=== PATIENT | female | born 1930 | race Caucasian/White ===

== ENCOUNTER 2016-07-19 11:54 | Observation (INO) ==
[2016-07-19] MEDS ORDERED: Aspirin 81 MG TAB.CHEW PO ONE (11:57)
--- NOTE | 2016-07-19 12:00 | Emergency Department Note ---
Disposition Clinical Impression: Chest pain Qualifiers: Chest pain type: unspecified Qualified Code(s): R07.9 - Chest pain, unspecified Pneumonia Qualifiers: Pneumonia type: due to unspecified organism Laterality: right Lung location: lower lobe of lung Qualified Code(s): J18.1 - Lobar pneumonia, unspecified organism Disposition: Admitted As Inpatient Condition: Fair Referrals: Otilio Brown, WORKERS COMPENSATION ADMINISTRATOR [Primary Care Provider] - Forms: ED Satisfaction Letter Time of Disposition: 14:02 Chest Pain HPI - General Chief Complaint: ED Chest Pain Stated Complaint: Chest pain Time Seen by Provider: 07/19/16 11:57 Source: patient, EMS Mode of arrival: EMS Limitations: no limitations Vital Signs Reviewed: Yes Nursing Notes Reviewed: Yes - History of Present Illness HPI Narrative: 85-year-old with a 2-3 day history of pressure-like chest pain rated about 4 out of 10. Patient has no previous history of heart. She's had no recent workup. Risk factors include cigarette smoking family history. Patient states she doesn't go to the doctor and she doesn't know if she has high cholesterol, hypertension, diabetes. Pt complaint: chest pain Onset (ago): day(s) () Duration: intermittent Onset: during rest Pain Location: substernal, left chest Severity: moderate Quality: tightness, heaviness Pain Radiation: none Improves with: nothing Worsens with: nothing Associated symptoms: Denies: dyspnea, fever, cough Treatments prior to arrival chest pain: aspirin, nitroglycerin - Related Data Home Medications Medication Instructions Recorded Confirmed Albuterol Neb [Proventil Neb] 2.5 mg IH TID 12/22/15 12/22/15 Albuterol Sulfate [Proair Hfa] 2 puff IH Q4H 12/22/15 12/22/15 Atorvastatin [Lipitor] 40 mg PO HS 12/22/15 12/22/15 Budesonide/Formoterol 160/4.5 2 puff IH BIDR 12/22/15 12/22/15 [Symbicort 160/4.5] Ca/D3/Mag#11/Zinc/Visual Basic Developer/Lev/Bor 1 each PO DAILY 12/22/15 12/22/15 [Caltrate 600+D Plus Tablet] Clopidogrel [Plavix] 75 mg PO DAILY 12/22/15 12/22/15 Furosemide [Lasix] 20 mg PO DAILY 12/22/15 12/22/15 Hydrochlorothiazide [Microzide] 12.5 mg PO DAILY 12/22/15 12/22/15 Lubiprostone [Amitiza] 24 mcg PO BID 12/22/15 12/22/15 Metoprolol [Lopressor] 25 mg PO DAILY 12/22/15 12/22/15 Mirtazapine [Remeron] 15 mg PO HS 12/22/15 12/22/15 [place]-3 Fatty Acids [Fish Oil] 1,000 mg PO DAILY 12/22/15 12/22/15 [place]-3 Fatty Acids [Fish Oil] 600 mg PO DAILY 12/22/15 12/22/15 Potassium Chloride [Klor-Con 10] 10 meq PO DAILY 12/22/15 12/22/15 Umeclidinium [place] [Incruse 1 puff IH DAILY 12/22/15 12/22/15 Ellipta] Allergies Allergy/AdvReac Type Severity Reaction Status Date / Time codeine AdvReac Nausea Verified 12/22/15 11:04 Varenicline [From Chantix] AdvReac See Verified 12/22/15 11:04 Comments All systems ED: reviewed and negative except as stated. Constitutional: Denies: fever, chills, weakness, weight change Eyes: Denies: eye pain, eye discharge, vision change ENT ED: Denies: ear pain, throat pain, dental pain, hearing loss, epistaxis, congestion, dysphagia Cardiovascular: Reports: chest pain. Denies: palpitations, dyspnea on exertion , edema, syncope Respiratory: Denies: cough, dyspnea, wheezes, hemoptysis, stridor Gastrointestinal: Denies: abdominal pain, nausea, vomiting, diarrhea, constipation, hematemesis, melena, hematochezia Genitourinary: Denies: dysuria, frequency, hematuria, discharge Musculoskeletal: Denies: back pain, neck pain, arthralgia, myalgia Integumentary: Denies: rash, abrasion, lesions Neurological: Denies: headache, weakness, numbness, paresthesias, confusion, abnormal gait, vertigo Psychiatric: Denies: anxiety, depression, suicidal thoughts, homicidal thoughts , auditory hallucinations, visual hallucinations Endocrine: Denies: fatigue Hematological/Lymphatic: Denies: easy bleeding, easy bruising Allergic/Immunologic: Denies: facial swelling, urticaria Chest Pain PMH - Past Medical History Medical history: Reports: arthritis, cancer, CHF, COPD, coronary artery disease , hyperlipidemia, hypertension Physical Exam - General Limitations: no limitations General appearance: alert, in no apparent distress - Head Head exam: atraumatic, normocephalic, normal inspection - Eye Eye exam: Present: normal appearance, PERRL, EOMI - ENT ENT exam: normal exam, normal oropharynx, mucous membranes moist - Neck Neck exam: Present: normal inspection, full ROM, trachea midline - Chest Chest inspection: Present: normal inspection, symmetric chest wall rise - Respiratory Respiratory exam: Present: normal lung sounds bilaterally - Cardiovascular Cardiovascular exam: Present: regular rate, normal rhythm, normal heart sounds - Abdominal Exam Abdominal exam: Present: soft, Non-Tender. Absent: tenderness, distention, guarding, rebound, rigidity - Extremities Exam Extremities exam: Present: normal inspection, full ROM. Absent: tenderness, pedal edema - Expanded Lower Extremity Exam Neurovascular/Tendon exam: Absent: motor deficit, sensory deficit, tendon deficit Gait: not tested/not observed - Back Exam Back exam: Present: normal inspection, full ROM. Absent: tenderness - Neurological Exam Neurological exam: Present: alert, oriented X3 - Psychiatric Psychiatric exam: Present: normal affect, normal mood - Skin Skin exam: Present: warm, dry, intact, normal color Course - Reevaluation(s) Reevaluation #1: 85-year-old comes in with chest pain across her chest heaviness in her chest. Patient does have multiple risk factors and has never had a cardiac workup. Chest x-ray there was a consideration of an infectious etiology opacity in the right lower lobe. Time: 13:59 - Consultations Consultation #1: Discussed with Zoila Ramirez nurse practitioner, admit Time: 13:59 Vital Signs Temperature 98.1 F 07/19/16 11:55 Pulse Rate 65 07/19/16 11:55 Respiratory Rate 18 07/19/16 11:55 Blood Pressure 152/68 07/19/16 11:55 O2 Sat by Pulse Oximetry 95 07/19/16 11:55 Temperature 98.1 F 07/19/16 11:55 Pulse Rate 61 07/19/16 13:21 Respiratory Rate 16 07/19/16 13:21 Blood Pressure 121/63 07/19/16 13:21 O2 Sat by Pulse Oximetry 98 07/19/16 13:21 Oxygen Delivery Oxygen Delivery Nasal Cannula Chest Pain - Lab Data Lab results reviewed: Yes I reviewed the patient's lab results. Result diagrams: 07/19/16 12:21 07/19/16 12:21 Lab Results 07/19/16 07/19/16 07/19/16 Range/Units 12:21 12:21 12:21 WBC 7.7 (4.3-11.1) K/mcL RBC 4.69 (3.82-4.97) M/mcL Hgb 12.4 (11.5-15.4) g/dL Hct 39.0 (35.3-44.9) % MCV 83.2 (83.0-100.0) fL MCH 26.4 L (28.0-33.3) pg MCHC 31.8 (31.6-35.5) g/dL RDW 14.0 (11.5-14.5) % Plt Count 244 (140-400) K/mcL MPV 10.0 (9.4-12.4) fL Immature Gran % 0.4 (0-4) % Seg Neutrophils % 55.7 % Lymphocytes % 31.3 % Monocytes % 10.8 % Eosinophils % 0.9 % Basophils % 0.9 % Neutrophils # 4.3 (1.6-8.9) K/mcL Lymphocytes # 2.4 (0.6-4.6) K/mcL Monocytes # 0.8 (0.0-1.3) K/mcL Eosinophils # 0.1 (0.0-0.6) K/mcL Basophils # 0.1 (0.0-0.2) K/mcL PT 10.8 (9.4-12.1) Seconds INR 1.0 APTT 27.4 (26.0-36.0) Seconds Sodium 141 (136-145) mEq/L Potassium 4.2 (3.5-4.5) mEq/L Chloride 102 (98-109) mEq/L Carbon Dioxide 31 H (19-29) mEq/L BUN 12 (7-20) mg/dL Creatinine 1.01 (0.57-1.11) mg/dL Est GFR ( Amer) > 60 (> 60) Est GFR (Non-Af Amer) 52 L (> 60) BUN/Creatinine Ratio 12 (6-26) Glucose 76 (70-99) mg/dL Calculated Osmolality 291 (280-300) Calcium 10.6 (8.6-10.8) mg/dL Troponin I (0-0.03) ng/mL 07/19/16 Range/Units 12:21 WBC (4.3-11.1) K/mcL RBC (3.82-4.97) M/mcL Hgb (11.5-15.4) g/dL Hct (35.3-44.9) % MCV (83.0-100.0) fL MCH (28.0-33.3) pg MCHC (31.6-35.5) g/dL RDW (11.5-14.5) % Plt Count (140-400) K/mcL MPV (9.4-12.4) fL Immature Gran % (0-4) % Seg Neutrophils % % Lymphocytes % % Monocytes % % Eosinophils % % Basophils % % Neutrophils # (1.6-8.9) K/mcL Lymphocytes # (0.6-4.6) K/mcL Monocytes # (0.0-1.3) K/mcL Eosinophils # (0.0-0.6) K/mcL Basophils # (0.0-0.2) K/mcL PT (9.4-12.1) Seconds INR APTT (26.0-36.0) Seconds Sodium (136-145) mEq/L Potassium (3.5-4.5) mEq/L Chloride (98-109) mEq/L Carbon Dioxide (19-29) mEq/L BUN (7-20) mg/dL Creatinine (0.57-1.11) mg/dL Est GFR ( Amer) (> 60) Est GFR (Non-Af Amer) (> 60) BUN/Creatinine Ratio (6-26) Glucose (70-99) mg/dL Calculated Osmolality (280-300) Calcium (8.6-10.8) mg/dL Troponin I 0.01 (0-0.03) ng/mL - Radiology Data Radiology results reviewed: Yes I reviewed the patient's radiology results. Chest X-Ray 07/19/16 11:57 IMPRESSION: 1. Interval appearance of a right base opacity with small effusion. Finding is concerning for infection in the appropriate clinical setting. 2. COPD. D/ / Tri Hayes MD / Tri Hayes MD Interpreting Provider: Tri Hayes MD - EKG Data EKG attestation: Yes I reviewed and interpreted this EKG. EKG shows normal: sinus rhythm Rate: normal Rhythm: NSR, PAC's Interpretation: no acute changes Heart Score - Score History: Moderately Suspicious EKG: Non Specific repolarisation Disturbance Age: Greater than 65 Risk Factors: Equal/Greater than 3 risk factor or history of atherosclerotic disease Troponin: Less than normal limit HEART Score Total: 6
[2016-07-19 12:34] LABS: Basophils # 0.1 K/mcL (0.0-0.2); Basophils % 0.9 %; Eosinophils # 0.1 K/mcL (0.0-0.6); Eosinophils % 0.9 %; Hemoglobin 12.4 g/dL (11.5-15.4); Immature Granulocytes % 0.4 % (0-4); Lymphocytes # 2.4 K/mcL (0.6-4.6); Lymphocytes % 31.3 %; Mean Corpuscular HGB Conc 31.8 g/dL (31.6-35.5); Mean Corpuscular Hemoglobin 26.4 pg (28.0-33.3); Mean Corpuscular Volume 83.2 fL (83.0-100.0); Monocytes # 0.8 K/mcL (0.0-1.3); Monocytes % 10.8 %; Neutrophils # 4.3 K/mcL (1.6-8.9); Platelet Count 244 K/mcL (140-400); Red Blood Count 4.69 M/mcL (3.82-4.97); Segmented Neutrophils % 55.7 %
[2016-07-19 12:41] LABS: BUN/Creatinine Ratio 12 (6-26); Blood Urea Nitrogen 12 mg/dL (7-20); Calcium 10.6 mg/dL (8.6-10.8); Carbon Dioxide 31 mEq/L (19-29); Chloride 102 mEq/L (98-109); Glucose 76 mg/dL (70-99); Osmolality,Calculated 291 (280-300); Potassium 4.2 mEq/L (3.5-4.5); Sodium 141 mEq/L (136-145); eGFR For African Americans > 60 (> 60); eGFR For Non-African Americans 52 (> 60)
[2016-07-19 12:43] LABS: Prothrombin Time 10.8 Seconds (9.4-12.1)
[2016-07-19 12:46] LABS: Activated Partial Thrombo Time 27.4 Seconds (26.0-36.0)
[2016-07-19] MEDS ORDERED: Levofloxacin 750 MG/150 ML 750 MG/150 ML BAG IVPB STA (13:06)
[2016-07-19] MEDS ORDERED: Acetaminophen 325 MG TABLET PO PRN (14:52)
[2016-07-19] MEDS ORDERED: Naloxone 0.4 MG/ML INJ IVP PRN (14:52)
[2016-07-19] MEDS ORDERED: *HR* LORazepam 0.5 MG TABLET PO PRN (14:54)
--- NOTE | 2016-07-19 15:08 | Internal Med History&Physical ---
<Zoila Ramirez - Last Filed: 07/20/16 00:00> Date of Encounter: 07/20/16 Time of Encounter: 14:00 Assessment and Plan (1) Chest pain Current visit: Yes Status: Acute 1 patient has been experiencing off and on pressure for 2 days. She has risk factors of hypertension smoker peripheral vascular disease, CAD prescribed troponins negative we will continue to cycle troponins 2 continuous cardiac monitoring 3 nitroglycerin as needed for chest pain 4 oxygen is being maintained history to greater than 90% 5 nothing by mouth after midnight for cardiac stress in the a.m. 6 continue with aspirin and statin will hold beta liliam in a.m. due to cardiac stress Qualifiers: Chest pain type: unspecified Qualified Code(s): R07.9 - Chest pain, unspecified (2) HTN (hypertension) Current visit: Yes Status: Acute 1 presently controlled with continue with home medications Qualifiers: Hypertension type: essential hypertension Qualified Code(s): I10 - Essential (primary) hypertension (3) Tobacco abuse Current visit: Yes Status: Acute 1 encouraged patient to stop smoking-nicotine patch (4) DVT prophylaxis Current visit: Yes Status: Acute 1 Lovenox (5) Pneumonia Current visit: Yes Status: Acute 1 we will continue with Levaquin 2. Bronchodilators as needed 3 oxygen to maintain SPO2 greater than 92% Qualifiers: Pneumonia type: due to unspecified organism Laterality: right Lung location: lower lobe of lung Qualified Code(s): J18.1 - Lobar pneumonia, unspecified organism (6) COPD exacerbation Current visit: Yes Status: Acute 1 continue with bronchodilators oxygen and steroids to taper Internal Medicine - H&P: HPI Chief complaint: cp Admitted From: Emergency Dept Plans for Post Hospital Care: Home History of present illness: Ms. Copeland is a 85 year old female past medical history of CAD peripheral vascular disease hypertension colon cancer tobacco abuse. According to the patient she has been experiencing off and on chest pain for past 2 days. She describes the pain as chest pressure nonradiating she does have some lightheadedness during episode. The pain is worse on exertion and is relieved with rest. She does have a chronic cough as well as white sputum production she does complain of shortness of breath however she states this is something is chronic. She has a history of COPD she is to wear oxygen as needed however she is noncompliant. Patient still continues to smoke approximately pack a day. This morning patient's home health nurse arrived and patient was having midsternal chest pressure she was brought to the ER for evaluation. According to ER records lab work revealed troponin of 0.01 chest x-ray right basilar paces E with small effusion concerning for infiltrate patient is afebrile leukocytosis. The cultures were obtained she was given IV antibiotics and an aspirin. Patient denies any past cardiac workup, she has seen Dr. Parekh for history of palpitations after she has never undergone a cardiac stress test or chronic catheterization She was admitted for further workup and evaluation. Presently the patient denies any chest pain or shortness of breath. Her lung sounds are clear with occasional expiratory wheeze. Heart sounds are regular S1 -S2 no rubs or clicks gallops or murmurs noted. No lower extremity edema noted. She is hemodynamically stable at this time I reviewed this case with who agrees with plan. Past Med Surg Social Fam HX - Past Medical History Medical history: arthritis, cancer, CHF, COPD, coronary artery disease, hyperlipidemia, hypertension Psychiatric history: anxiety - Social History Smoking Status: Current every day smoker Smokeless Tobacco Status: No Alcohol use: none Drug use: none - Family History Mother Living Status: Hx Family Cardiac Disorders: Yes (self,father,mother,brother) Hx Family Respiratory Disorders: Yes (self, brother) Hx Family Cancer: Yes (self, mother, father) Hx Family GI Disorders: No Hx Family Endocrine Disorder: No Hx Family Neuromuscular Disorders: No Hx Family Neurologic Disorders: Yes (mother,father) Hx Family HEENT Disorders: No Hx Family Autoimmune Disorders: Yes (brother) Internal Medicine - H&P: Meds Albuterol Neb [Proventil Neb] 2.5 mg IH TID 12/22/15 [History] Albuterol Sulfate [Proair Hfa] 2 puff IH Q4H 12/22/15 [History] Atorvastatin [Lipitor] 40 mg PO HS 12/22/15 [History] Budesonide/Formoterol 160/4.5 [Symbicort 160/4.5] 2 puff IH BIDR 12/22/15 [ History] Ca/D3/Mag#11/Zinc/Drilling Field Operator/Lev/Bor [Caltrate 600+D Plus Tablet] 1 tab PO BID [History] Clopidogrel [Plavix] 75 mg PO DAILY 12/22/15 [History] Furosemide [Lasix] 20 mg PO DAILY 12/22/15 [History] Hydrochlorothiazide [Microzide] 12.5 mg PO DAILY 12/22/15 [History] Lubiprostone [Amitiza] 24 mcg PO BID 12/22/15 [History] Mirtazapine [Remeron] 7.5 mg PO HS 12/22/15 [History] [place]-3 Fatty Acids [Fish Oil] 1,000 mg PO DAILY 12/22/15 [History] Potassium Chloride [Klor-Con 10] 20 meq PO DAILY 12/22/15 [History] Umeclidinium [place] [Incruse Ellipta] 1 puff IH DAILY 12/22/15 [History] Aspirin [Lo-Dose Aspirin EC] 81 mg PO DAILY 07/19/16 [History] Fish Oil/Borage/Flax/Om3,6,9#1 [[place] 3-6-9 1,200 mg Softgel] 600 mg PO DAILY [History] LORazepam [Ativan] 0.5 mg PO BID PRN 07/19/16 [History] Metoprolol XL (24 HR) Succ [Toprol XL] 37.5 mg PO DAILY 07/19/16 [History] Allergies codeine Adverse Reaction (Verified 12/22/15 11:04) Nausea Varenicline [From Chantix] Adverse Reaction (Verified 12/22/15 11:04) See Comments states suppressed appetite All Systems PM: A 10-system review of systems was performed and is negative for pertinent findings except as documented above in the HPI. - Constitutional Constitutional: no chills, no fever(s), no night sweats - EENT Eyes: no change in vision, no discharge, no pain, no photophobia Nose, mouth and throat: no dysphagia, no nasal discharge, no neck pain, no sore throat - Cardiovascular Cardiovascular ROS IM: chest pain, dyspnea, dyspnea on exertion, irregular heart rhythm, lightheadedness - Respiratory Respiratory: cough, dyspnea, change in phlegm color - Gastrointestinal Gastrointestinal: no abdominal pain, no diarrhea, no hematemesis, no hematochezia, no melena, no nausea, no vomiting - Genitourinary Genitourinary: no change in urinary stream, no dysuria, no flank pain, no hematuria - Musculoskeletal Musculoskeletal ROS IM: no numbness, no tingling - Integumentary Integumentary IM: no rash, no unusual bruising - Neurological Neurological ROS: no confusion, no convulsions, no focal weakness, no numbness, no tingling, no tremor(s) - Hematologic/Lymphatic Hematologic/Lymphatic: no easy bruising - Constitutional Vitals: Temp Pulse Resp BP Pulse Ox 98.1 F 61 16 121/63 98 07/19/16 11:55 07/19/16 13:21 07/19/16 13:21 07/19/16 13:21 07/19/16 13:21 General appearance: Present: A&O X 3, answers questions appropriately - Head Head exam: Present: atraumatic, normocephalic - Eye Eye exam: Present: PERRL, conjuntiva pink, sclera anicteric Pupils: Present: PERRL - Neck Neck exam general surgery: Present: supple, trachea midline. Absent: lymphadenopathy - Respiratory Respiratory exam: Present: CTAB, wheezes. Absent: accessory muscle use, rales, rhonchi - Cardiovascular Cardiovascular exam: Present: RRR, +S1, +S2. Absent: diastolic murmur, gallop, rubs, systolic murmur - Extremities Exam Extremities exam: Present: warm, radial pulses palpable and symetrical. Absent : calf tenderness, cyanotic, pedal edema - Neurological Exam Neurological exam: Present: CN II-XII intact, oriented X3, no focal deficits. Absent: pronater drift, facial droop, speech deficit - Skin Skin exam: Present: dry, intact Internal Med - H&P Results - Labs CBC & Chem 7: 07/19/16 12:21 07/19/16 12:21 - EKG Data EKG shows normal: sinus rhythm - Diagnostic Studies Other Images Additional comments: Chest X-Ray 07/19/16 11:57 IMPRESSION: 1. Interval appearance of a right base opacity with small effusion. Finding is concerning for infection in the appropriate clinical setting. 2. COPD. D/ / 07/19/2016 13:37:05 Tri Hayes MD / olinda Interpreting Provider: Tri Hayes MD <Olayinka Barron - Last Filed: 07/20/16 07:41> Date of Encounter: 07/19/16 Internal Medicine - H&P: HPI History of present illness: Ms. Copeland is a 85 year old female All Systems PM: A 10-system review of systems was performed and is negative for pertinent findings except as documented above in the HPI. - Constitutional Vitals: Temp Pulse Resp BP Pulse Ox 97.8 F 60 22 130/71 99 07/19/16 18:32 07/19/16 18:32 07/19/16 18:32 07/19/16 18:32 07/19/16 18:32 Internal Med - H&P Results - Labs CBC & Chem 7: 07/20/16 01:14 07/20/16 01:14 Labs: Cardiac Enzymes 07/19/16 Range/Units 19:16 Troponin I 0.01 (0-0.03) ng/mL - Attending Attestation I examined this patient and my medical decision-making was reviewed with the Advanced Practice Nurse. I agree with the documented findings, disposition and treatment plan as described except to the extent set forth below. She appears short of breath and tachypneic with minimal movement in bed. Lung exam reveals bilateral expiratory wheezes. Heart is regular. Chest x-ray reveals right base infiltrate consistent with pneumonia. Plan: We will treat her for pneumonia with Levaquin. I will add Solu-Medrol and inhaled albuterol and Atrovent 4 COPD exacerbation.
[2016-07-19] MEDS: MethylPREDNISolone 40 MG/ML VIAL IVP SCH (19:45)
[2016-07-19] MEDS: Nicotine 21 MG PATCH.TD24 TD SCH (19:45)
[2016-07-19] MEDS: Budesonide/Formoterol 160/4.5 MDI IH SCH (20:07)
[2016-07-19] MEDS ORDERED: Mirtazapine 15 MG TABLET PO SCH (21:00)
[2016-07-19] MEDS: Ipratropium/Albuterol Neb 3 ML IH SCH (23:41)
[2016-07-20 02:24] LABS: Basophils % 0.6 %; Hematocrit 34.5 % (35.3-44.9); Hemoglobin 10.9 g/dL (11.5-15.4); Immature Granulocytes % 0.6 % (0-4); Lymphocytes # 0.5 K/mcL (0.6-4.6); Lymphocytes % 7.3 %; Mean Corpuscular HGB Conc 31.6 g/dL (31.6-35.5); Mean Corpuscular Hemoglobin 25.6 pg (28.0-33.3); Mean Corpuscular Volume 81.2 fL (83.0-100.0); Mean Platelet Volume 10.5 fL (9.4-12.4); Monocytes # 0.1 K/mcL (0.0-1.3); Monocytes % 0.9 %; Neutrophils # 5.8 K/mcL (1.6-8.9); Platelet Count 223 K/mcL (140-400); Red Blood Count 4.25 M/mcL (3.82-4.97); Red Cell Distribution Width 13.5 % (11.5-14.5); Segmented Neutrophils % 90.6 %
[2016-07-20 02:42] LABS: BUN/Creatinine Ratio 11 (6-26); Blood Urea Nitrogen 11 mg/dL (7-20); Calcium 9.4 mg/dL (8.6-10.8); Carbon Dioxide 27 mEq/L (19-29); Chloride 96 mEq/L (98-109); Glucose 130 mg/dL (70-99); Magnesium 1.6 mg/dL (1.6-2.6); Osmolality,Calculated 275 (280-300); Potassium 4.1 mEq/L (3.5-4.5); eGFR For African Americans > 60 (> 60); eGFR For Non-African Americans 53 (> 60)
[2016-07-20 02:44] LABS: Sodium 132 mEq/L (136-145)
[2016-07-20] MEDS: Ipratropium/Albuterol Neb 3 ML IH SCH ×3 (03:47→10:34)
[2016-07-20] MEDS: MethylPREDNISolone 40 MG/ML VIAL IVP SCH (06:18)
[2016-07-20] MEDS ORDERED: Regadenoson 0.4 MG/5 ML SYRINGE IVP ONE (06:29)
[2016-07-20] MEDS ORDERED: *HR* Enoxaparin 40 MG/0.4 ML SYRINGE SQ SCH (07:00)
--- NOTE | 2016-07-20 08:25 | Electrocardiograph Report ---
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
[2016-07-20] MEDS ORDERED: Aspirin Enteric Coated 81 MG Tablet PO SCH (09:00)
[2016-07-20] MEDS ORDERED: Metoprolol XL (24 HR) Succ 25 MG TAB.ER.24H PO SCH (09:00)
[2016-07-20] MEDS ORDERED: (Umeclidinium Bromide [Incruse Ellipta] 1 PUFF) IH SCH (09:00)
[2016-07-20] MEDS ORDERED: (Omega-3 Fatty Acids [Fish Oil] 1,000 MG) PO SCH (09:00)
[2016-07-20] MEDS ORDERED: Furosemide 20 MG TABLET PO SCH (09:00)
[2016-07-20] MEDS ORDERED: hydroCHLOROthiazide 25 MG TABLET PO SCH (09:00)
[2016-07-20] MEDS: Nicotine 21 MG PATCH.TD24 TD SCH (09:35)
[2016-07-20] MEDS: Budesonide/Formoterol 160/4.5 MDI IH SCH (10:34)
[2016-07-20 11:46] VITALS: BP 116/54
--- NOTE | 2016-07-20 12:01 | Nuclear Medicine Stress Report ---
Regadenoson Nuclear Stress Name: Grazyna Copeland Date of Study: 07/20/2016 Date: 1930 Ht: 62.0 in Medical Record#: [id number] Age: 85 Wt: 103.0 lb Gender: Female Order #: [id number] Location: [facility] Room: [facility] ([place] Supervising Provider: Alejandro Flaherty CNP Reading Physician: Candace Burr DO Ordering Physician: Jocelyne Walker CNP Primary Care Physician: Otilio Brown CNP Stress Technologist: Aura Leblanc SURVEYING CREW RODMAN, CCT Television Camera Operator: Abdon Stephens Indications: Chest Pain, Shortness of breath Impression: Perfusion imaging was negative for ischemia or infarct. Pharmacologic ECG was non diagnostic for ischemia. Gated EF = 57%. Gated EF may be compromised secondary to data quality. Frequent PACs, short infrequent runs of SVT. History: Hypertension Hypercholesteremia History of Smoking Stress Test Summary: Stress Test Type: Pharmacologic Regadenoson 0.4mg/5ml given IV Baseline Information: Initial Heart Rate: 77 Blood Pressure: 124/72 Stress Information: Test Terminated Due to (primary): As per protocol Maximum Blood Pressure: 118/60 Maximum Heart Rate: 93 Percent Maximum Heart Rate Achieved: 70 Double Product: [id number] METS Reached: 1 Symptoms: Shortness of breath, No chest symptoms Nuclear Summary: SPECT myocardial perfusion imaging using Tc99m Sestamibi given intravenously was performed at rest and following cardiac stress testing. The resting images were obtained following initial dose of 11.0 mCi. Following stress an additional dose of 35.2 mCi was given at peak exercise or 30 seconds post regadenoson infusion. Medication Given: Time Medication Dose Units Route Findings: Stress Note * Resting ECG demonstrated normal sinus rhythm, PVCs, PACs and nonspecific ST abnormalities. * Pharmacologic stress ECG is non diagnostic for ischemia due to baseline non-specific ST and T changes. * Frequent PACs noted during stress. Infrequent, short runs of SVT. * Patient had no chest pain during stress. Hemodynamic responses * Normal hemodynamic responses to pharmacologic stress. Study Quality * Technically challenging. Data compromised due to irregular heart rate. Gated EF % * Gated EF = 57%. Left Ventricle * The left ventricle is not dilated. TID * No evidence of transient ischemic dilatation. Lung Uptake * There is no evidence of increase lung uptake. NORMALS * Normal wall motion. * Normal segmental perfusion in stress. * Normal Segmental Perfusion in rest. Updated by Candace Burr on 07/20/2016 11:55:59 AM electronically signed on 07/20/2016 11:58:02 AM with status of Final
[2016-07-20] MEDS ORDERED: Levofloxacin 750 MG/150 ML 750 MG/150 ML BAG IVPB SCH (13:00)
--- NOTE | 2016-07-20 14:38 | Discharge Summary ---
Date of Encounter: 07/20/16 Time of Encounter: 13:15 - Discharge Diagnosis (1) Chest pain Priority: Primary Status: Resolved Comments: Patient denied chest pain on day of discharge. Stress test negative. ACS ruled out. Qualifiers: Chest pain type: unspecified Qualified Code(s): R07.9 - Chest pain, unspecified (2) COPD exacerbation Priority: Primary Status: Resolved Comments: Patient denies shortness of breath above her normal at time of discharge. (3) Heart failure Priority: Primary Status: Acute Comments: Echocardiogram revealing preserved ejection fraction with moderate diastolic dysfunction. New diagnosis for this patient. Successfully diuresed during this admission, we will start on low-dose furosemide at home. (4) DESHAWN (acute kidney injury) Priority: Primary Status: Acute Comments: mild; creatinine normal. Follow-up outpatient (5) Pulmonary cachexia due to COPD Priority: Primary Status: Suspected Comments: offered her appetite stimulants but she refused. she states she eats what she wants to eat and when she wants to eat it. (6) Pneumonia Priority: Primary Status: Acute Comments: Chest x-ray consistent with right lower lobe pneumonia. Treated with levofloxacin while admitted, will continue upon discharge. No increased need for oxygen. Patient denies shortness of breath above her normal time of discharge Qualifiers: Pneumonia type: due to unspecified organism Laterality: right Lung location: lower lobe of lung Qualified Code(s): J18.1 - Lobar pneumonia, unspecified organism (7) HTN (hypertension) Priority: Secondary Status: Chronic Comments: Controlled, follow-up outpatient Qualifiers: Hypertension type: essential hypertension Qualified Code(s): I10 - Essential (primary) hypertension (8) Tobacco abuse Priority: Secondary Status: Chronic Comments: Continues to smoke one to one and half packs per day. Declines smoking cessation or nicotine replacement therapy. Patient stating she wears her oxygen until it is time for a cigarette at which time she takes her oxygen off. (9) DVT prophylaxis Priority: Primary Status: Acute Comments: Subcutaneous Lovenox while admitted (10) Chronic respiratory failure Priority: Secondary Status: Chronic Comments: Supposed to be on 2 L per nasal cannula continuously at home however the patient and her daughters state that she frequently takes her oxygen off as she can smoke. No increased need for oxygen. Qualifiers: Respiratory failure complication: unspecified whether with hypoxia or hypercapnia Qualified Code(s): J96.10 - Chronic respiratory failure, unspecified whether with hypoxia or hypercapnia - Discharge Medications Prescriptions: Levofloxacin [Levaquin] 750 mg PO DAILY #6 tablet predniSONE [PredniSONE] 10 mg PO DAILY #89 tablet Home Medications: Albuterol Neb [Proventil Neb] 2.5 mg IH TID 12/22/15 [History] Albuterol Sulfate [Proair Hfa] 2 puff IH Q4H 12/22/15 [History] Atorvastatin [Lipitor] 40 mg PO HS 12/22/15 [History] Budesonide/Formoterol 160/4.5 [Symbicort 160/4.5] 2 puff IH BIDR 12/22/15 [ History] Ca/D3/Mag#11/Zinc/Liner Installer/Lev/Bor [Caltrate 600+D Plus Tablet] 1 tab PO BID [History] Clopidogrel [Plavix] 75 mg PO DAILY 12/22/15 [History] Furosemide [Lasix] 20 mg PO DAILY 12/22/15 [History] Hydrochlorothiazide [Microzide] 12.5 mg PO DAILY 12/22/15 [History] Lubiprostone [Amitiza] 24 mcg PO BID 12/22/15 [History] Mirtazapine [Remeron] 7.5 mg PO HS 12/22/15 [History] [place]-3 Fatty Acids [Fish Oil] 1,000 mg PO DAILY 12/22/15 [History] Potassium Chloride [Klor-Con 10] 20 meq PO DAILY 12/22/15 [History] Umeclidinium [place] [Incruse Ellipta] 1 puff IH DAILY 12/22/15 [History] Aspirin [Lo-Dose Aspirin EC] 81 mg PO DAILY 07/19/16 [History] Fish Oil/Borage/Flax/Om3,6,9#1 [[place] 3-6-9 1,200 mg Softgel] 600 mg PO DAILY [History] LORazepam [Ativan] 0.5 mg PO BID PRN 07/19/16 [History] Metoprolol XL (24 HR) Succ [Toprol Xl] 37.5 mg PO DAILY 07/19/16 [History] Levofloxacin [Levaquin] 750 mg PO DAILY #6 tablet 07/20/16 [Rx] predniSONE [PredniSONE] 10 mg PO DAILY #89 tablet 07/20/16 [Rx] Allergies/Adverse Reactions: Allergies codeine Adverse Reaction (Verified 12/22/15 11:04) Nausea Varenicline [From Chantix] Adverse Reaction (Verified 12/22/15 11:04) See Comments states suppressed appetite Procedures/tests Complete & Pending: Procedures Performed prior 72 hours Category Date Time Status NM [place] perf SPECT multi [NM] Routine Exams 07/19/16 15:48 Taken EV echocardiogram Routine Y 07/19/16 15:00 Completed SP pharm nuclear stress Routine Y 07/20/16 07:15 Completed Date of admission: 07/19/16 14:46 Primary care physician: Otilio Brown CNP Consults: 07/20/16 12:04 Consult to [place] Tender [CONS] Routine Reason for SW Consult: HH care, and home oxygen Discharging clinician: Jocelyne Walker Anticipated date of discharge: 07/20/16 - Patient Status Disposition: Home, Self-Care Condition: Fair Functional capacity at discharge: independent ambulation Overall status at discharge: patient is back to baseline - Discharge Instructions Follow Up With: Otilio Brown CNP [Primary Care Provider] - 07/25/16 10:40 am Additional Instructions: Follow-up with primary care provider as scheduled - Diet and Activity Activity: increase activity as tolerated, wear oxygen at all times Diet: regular diet Hospital course: Ms. Copeland is a 85 year old female with past medical history of CAD, PVD, hypertension, colon cancer, tobacco abuse, COPD on oxygen at home, hyperlipidemia. Patient presented to the emergency department chief complaint intermittent chest pain 2 days. Patient described the pain as pressure that did not radiate and was associated with lightheadedness. Pain was worse with exertion and relieved with rest. Patient also endorsing a chronic cough and denied shortness of breath above her norm. Chest x-ray in the emergency department consistent with right lower lobe pneumonia. Patient was started on levofloxacin and admitted to the hospitalist service for further evaluation and management. Troponin negative 3. Echocardiogram revealing ejection fraction of 65% with moderate diastolic dysfunction. Her regular home dose of furosemide was continued and she was euvolemic/slightly dehydrated initially in the admission. Patient also had a nuclear stress test that was negative for ischemia or infarct. Patient with chronically decreased by mouth intake and she was offered an appetite stimulant but refused stating that she is continuing whatever she wants to eat, when she wants to eat it. She had a similar response when we attempted smoking cessation counseling. She continues to smoke 1-1-1/2 packs per day. She states she is supposed to be on 2 L per nasal cannula continuously at home however she takes off her oxygen when she needs to smoke. At time of discharge, she denied chest pain. She denied shortness of breath above her norm. She was discharged home in stable condition with close outpatient follow-up recommended. ITS Impressions Chest X-Ray 07/19/16 11:57 IMPRESSION: 1. Interval appearance of a right base opacity with small effusion. Finding is concerning for infection in the appropriate clinical setting. 2. COPD. D/ / 07/19/2016 13:37:05 Tri Hayes MD / olinda Interpreting Provider: Tri Hayes MD Echocardiogram impressions: LVEF 65%. Normal left ventricular size and systolic function. There is evidence of moderate diastolic dysfunction of the left ventricle. Normal right ventricular size and function. No significant valvular dysfunction. No pulmonary hypertension. Regadenosen nuclear stress impression: Perfusion imaging was negative for ischemia or infarct. Pharmacologic ECG was nondiagnostic for ischemia. Gaited ejection fraction equals 57%. Gated EF may be compromised secondary to beta quality. Frequent PACs, short infrequent runs of SVT. - Time Spent with Patient Total time spent providing and/or coordinating discharge services: - Constitutional Vitals: Temp Pulse Resp BP Pulse Ox 97.5 F L 93 20 116/54 97 07/20/16 11:45 07/20/16 11:45 07/20/16 11:45 07/20/16 11:45 07/20/16 11:45 General appearance: Present: mild distress (chronic), A&O X 3, pleasant, answers questions appropriately - Head Head exam: Present: atraumatic, normocephalic - Eye Eye exam: Present: PERRL, conjuntiva pink, sclera anicteric Pupils: Present: PERRL - Neck Neck exam general surgery: Present: supple, trachea midline. Absent: lymphadenopathy - Respiratory Respiratory exam: Present: accessory muscle use, decreased breath sounds, wheezes. Absent: rales, respiratory distress, rhonchi - Cardiovascular Cardiovascular exam: Present: RRR, +S1, +S2. Absent: diastolic murmur, gallop, rubs, systolic murmur - GI/Abdominal GI/Abdominal exam: Present: normal bowel sounds, soft, no peritoneal signs. Absent: distended, tenderness - Extremities Exam Extremities exam: Present: warm, radial pulses palpable and symetrical. Absent : calf tenderness, cyanotic, pedal edema - Neurological Exam Neurological exam: Present: alert, CN II-XII intact, oriented X3, no focal deficits, strengths equal and symetr throughout. Absent: pronater drift, facial droop, speech deficit - Skin Skin exam: Present: dry, intact, pallor, warm
== END 2016-07-20 15:45 | disposition home or self-care (01) ==
LOC: EMEROO 11:54 → 3BNU 11:54
PROVIDERS: ADMIT Internal Medicine; ATTEND Nurse Practitioner Family

== ENCOUNTER 2016-09-27 17:26 | Inpatient (IN) ==
[2016-09-27] MEDS ORDERED: 0.9 % Sodium Chloride 1,000 ML IVC ONE (17:49)
[2016-09-27] MEDS ORDERED: *HR* HYDROmorphone (PF) 1 MG/ML SYRINGE IVP ONE (17:49)
[2016-09-27] MEDS ORDERED: Ondansetron 4 MG/2 ML VIAL IVP ONE (17:49)
--- NOTE | 2016-09-27 17:53 | Emergency Department Note ---
Disposition Clinical Impression: Fall from ground level, Hypokalemia, COPD exacerbation, Hypoxia, Risk for falls Failure to thrive Qualifiers: Failure to thrive age range: in adult Qualified Code(s): R62.7 - Adult failure to thrive Disposition: Admitted As Inpatient Condition: Fair Time of Disposition: 22:00 Fall HPI - General Chief Complaint: ED Fall Stated Complaint: Fall Time Seen by Provider: 09/27/16 17:40 Source: patient Nursing Notes Reviewed: Yes Vital Signs Reviewed: Yes - History of Present Illness HPI Narrative: 86-year-old female who presents by EMS secondary to fall 1.5 hours ago. Patient has a history of Alzheimer's and previous falls and is currently on Plavix. Patient was found down by the side walk Around on her left side with her head hanging off the sidewalk by family. Patient complains of 10/10 coccygeal pain and right hip pain. - Related Data Home Medications Medication Instructions Recorded Confirmed Albuterol Neb [Proventil Neb] 2.5 mg IH TID 12/22/15 09/27/16 Albuterol Sulfate [Proair Hfa] 2 puff IH Q4H 12/22/15 09/27/16 Atorvastatin [Lipitor] 40 mg PO HS 12/22/15 09/27/16 Budesonide/Formoterol 160/4.5 2 puff IH BIDR 12/22/15 09/27/16 [Symbicort 160/4.5] Ca/D3/Mag#11/Zinc/Manager Hospitality/Lev/Bor 1 tab PO BID 12/22/15 09/27/16 [Caltrate 600+D Plus Tablet] Clopidogrel [Plavix] 75 mg PO DAILY 12/22/15 09/27/16 Furosemide [Lasix] 20 mg PO DAILY 12/22/15 09/27/16 Lubiprostone [Amitiza] 24 mcg PO BID 12/22/15 09/27/16 Mirtazapine [Remeron] 7.5 mg PO HS 12/22/15 09/27/16 [place]-3 Fatty Acids [Fish Oil] 1,000 mg PO DAILY 12/22/15 09/27/16 Potassium Chloride [Klor-Con 10] 20 meq PO DAILY 12/22/15 09/27/16 Umeclidinium [place] [Incruse 1 puff IH DAILY 12/22/15 09/27/16 Ellipta] Aspirin [Lo-Dose Aspirin EC] 81 mg PO DAILY 07/19/16 09/27/16 Fish Oil/Borage/Flax/Om3,6,9#1 600 mg PO DAILY 07/19/16 09/27/16 [[place] 3-6-9 1,200 mg Softgel] LORazepam [Ativan] 0.5 mg PO BID PRN 07/19/16 09/27/16 Metoprolol XL (24 HR) Succ [Toprol 37.5 mg PO DAILY 07/19/16 09/27/16 Xl] Loratadine [Allergy Relief] 10 mg PO DAILY 09/27/16 09/27/16 Magnesium Oxide [Magnesium] 250 mg PO TID 09/27/16 09/27/16 Previous Rx's Medication Instructions Recorded predniSONE [PredniSONE] 10 mg PO DAILY #89 tablet 07/20/16 Allergies Allergy/AdvReac Type Severity Reaction Status Date / Time codeine AdvReac Nausea Verified 09/21/16 14:04 Varenicline [From Chantix] AdvReac See Verified 09/21/16 14:04 Comments All systems ED: reviewed and negative except as stated. Review of Systems: As Per HPI Constitutional: Denies: fever Eyes: Denies: vision change ENT ED: Denies: congestion Cardiovascular: Denies: chest pain, palpitations Respiratory: Denies: cough Gastrointestinal: Denies: abdominal pain, nausea, vomiting Musculoskeletal: Reports: back pain Integumentary: Denies: rash Neurological: Reports: headache Fall PMH - Past Medical History Medical history: Reports: arthritis, cancer, CHF, COPD, coronary artery disease , hyperlipidemia, hypertension Surgical history: Reports: Psychiatric history: Reports: anxiety - Social History Smoking Status: Current every day smoker Alcohol use: Reports: none Drug use: Reports: none Physical Exam - General Limitations: no limitations General appearance: alert, in no apparent distress - Head Head exam: atraumatic, normocephalic, normal inspection - Eye Eye exam: Present: normal appearance, PERRL, EOMI - ENT ENT exam: normal exam, normal oropharynx, mucous membranes moist - Neck Neck exam: Present: normal inspection, full ROM, trachea midline - Chest Chest inspection: Present: normal inspection, symmetric chest wall rise - Respiratory Respiratory exam: Present: normal lung sounds bilaterally - Cardiovascular Cardiovascular exam: Present: regular rate, normal rhythm, normal heart sounds - Abdominal Exam Abdominal exam: Present: soft, Non-Tender. Absent: tenderness, distention, guarding, rebound, rigidity - Extremities Exam Extremities exam: Present: other (Small skin tear posterior upper arm just above the elbow and right. Small ecchymotic raised nodule on left proximal forearm just distal to elbow.) - Expanded Lower Extremity Exam Lower leg exam: Present: other (Linear scratches on the anterior tibia area of the lower extremities nonbleeding). Absent: tenderness Course - Reevaluation(s) Reevaluation #1: Patient seen and examined. Images of head neck, back, pelvis, right hip and labs and urine ordered. Time: 17:49 Reevaluation #2: Patient's imaging came back negative for any fractures. Removed c-collar. Patient not complaining of any pain. Time: 18:20 Reevaluation #3: Awaiting urine. At the straight catheter for urine. Patient asked for a nicotine patch. The nicotine patch ordered. Time: 20:36 Vital Signs Temperature 97.6 F 09/27/16 17:27 Pulse Rate 91 09/27/16 17:27 Respiratory Rate 18 09/27/16 17:27 Blood Pressure 179/84 09/27/16 17:27 O2 Sat by Pulse Oximetry 88 09/27/16 17:27 Temperature 97.9 F 09/27/16 22:45 Pulse Rate 82 09/27/16 22:45 Respiratory Rate 16 09/27/16 22:45 Blood Pressure 156/70 09/27/16 22:45 O2 Sat by Pulse Oximetry 93 09/27/16 22:45 Oxygen Delivery Oxygen Delivery Nasal Cannula Fall - [facility] Narrative Medical decision making narrative: Patient concerning for fractures of head neck right hip secondary to fall from ground-level. Fall secondary to worsening confusion. Patient's family members stated that she has been falling a lot for the past week and has been seen more confused past week as well. Patient has been refusing to drink and has been eating very little. Concern for failure to thrive Patient's cardiac workup was negative for abnormalities. Troponin was negative , EKG normal sinus rhythm, chest x-ray no cardiopulmonary abnormalities. Patient's labs show hypokalemia at 3.3. Patient started on IV potassium replacement. Patient was started on DuoNeb therapy for hypoxic episodes. Patient's O2 sats dropped into the 80s spontaneously. Patient's rate of breathing also increased. Patient having slight wheezes and crackles abased lungs. Patient is a smoker and has COPD. Current plan to admit patient for further assessment secondary to COPD exacerbation, confusion, failure to thrive, fall risk, hypokalemia. Patient is accepted for admission by Hospitalist. My attending Dr. Meyers the care of the consult - Lab Data Lab results reviewed: Yes I reviewed the patient's lab results. Result diagrams: 09/27/16 19:08 09/27/16 19:08 Lab Results 09/27/16 09/27/16 09/27/16 Range/Units 19:08 19:08 19:08 WBC 7.6 (4.3-11.1) K/mcL RBC 4.46 (3.82-4.97) M/mcL Hgb 11.4 L (11.5-15.4) g/dL Hct 36.8 (35.3-44.9) % MCV 82.5 L (83.0-100.0) fL MCH 25.6 L (28.0-33.3) pg MCHC 31.0 L (31.6-35.5) g/dL RDW 14.5 (11.5-14.5) % Plt Count 244 (140-400) K/mcL MPV 9.8 (9.4-12.4) fL Immature Gran % 0.4 (0-4) % Seg Neutrophils % 63.1 % Lymphocytes % 24.6 % Monocytes % 10.9 % Eosinophils % 0.5 % Basophils % 0.5 % Neutrophils # 4.8 (1.6-8.9) K/mcL Lymphocytes # 1.9 (0.6-4.6) K/mcL Monocytes # 0.8 (0.0-1.3) K/mcL Eosinophils # 0.0 (0.0-0.6) K/mcL Basophils # 0.0 (0.0-0.2) K/mcL Immature Plt Fraction 3.3 (1.1-6.1) % ABG pH (7.32-7.45) pH Units ABG pCO2 (35-45) mmHg ABG pO2 (85-104) mmHg ABG HCO3 (21-27) mEQ/L ABG Total CO2 (20-26) mEq/L ABG O2 Saturation (95-98) % ABG Base Excess (-2.0 to 3.0) mEq/L Blood Gas Modality Inspired O2 % Sodium 138 (136-145) mEq/L Potassium 3.3 L (3.5-4.5) mEq/L Chloride 100 (98-109) mEq/L Carbon Dioxide 34 H (19-29) mEq/L BUN 8 (7-20) mg/dL Creatinine 0.80 (0.57-1.11) mg/dL Est GFR ( Amer) > 60 (> 60) Est GFR (Non-Af Amer) > 60 (> 60) BUN/Creatinine Ratio 10 (6-26) Glucose 96 (70-99) mg/dL Calculated Osmolality 284 (280-300) Calcium 9.1 (8.6-10.8) mg/dL Troponin I 0.00 (0-0.03) ng/mL Urine Color (Yellow) Urine Clarity (Clear) Urine pH (5.0-8.0) pH Units Ur Specific [place] (1.010-1.025) Urine Protein (Neg-Trace) mg/dL Urine Glucose (UA) (Normal) mg/dL Urine Ketones (Negative) mg/dL Urine Blood (Negative) Urine Nitrite (Negative) Urine Bilirubin (Negative) Urine Urobilinogen (Normal) mg/dL Ur Leukocyte Esterase (Negative) Urine Microscopic RBC (0-3) per hpf Urine Microscopic WBC (0-3) per hpf Ur Squamous Epith Cells (None-Few) per lpf Urine Bacteria (None-Few) per hpf Hyaline Casts (None-Few) per lpf Ur Culture Indicated? (NO) 09/27/16 09/27/16 Range/Units 20:22 21:20 WBC (4.3-11.1) K/mcL RBC (3.82-4.97) M/mcL Hgb (11.5-15.4) g/dL Hct (35.3-44.9) % MCV (83.0-100.0) fL MCH (28.0-33.3) pg MCHC (31.6-35.5) g/dL RDW (11.5-14.5) % Plt Count (140-400) K/mcL MPV (9.4-12.4) fL Immature Gran % (0-4) % Seg Neutrophils % % Lymphocytes % % Monocytes % % Eosinophils % % Basophils % % Neutrophils # (1.6-8.9) K/mcL Lymphocytes # (0.6-4.6) K/mcL Monocytes # (0.0-1.3) K/mcL Eosinophils # (0.0-0.6) K/mcL Basophils # (0.0-0.2) K/mcL Immature Plt Fraction (1.1-6.1) % ABG pH 7.34 (7.32-7.45) pH Units ABG pCO2 58 H (35-45) mmHg ABG pO2 69 L (85-104) mmHg ABG HCO3 31.3 H (21-27) mEQ/L ABG Total CO2 33.1 H (20-26) mEq/L ABG O2 Saturation 92 L (95-98) % ABG Base Excess 4.3 H (-2.0 to 3.0) mEq/L Blood Gas Modality [place] Inspired O2 28 % Sodium (136-145) mEq/L Potassium (3.5-4.5) mEq/L Chloride (98-109) mEq/L Carbon Dioxide (19-29) mEq/L BUN (7-20) mg/dL Creatinine (0.57-1.11) mg/dL Est GFR ( Amer) (> 60) Est GFR (Non-Af Amer) (> 60) BUN/Creatinine Ratio (6-26) Glucose (70-99) mg/dL Calculated Osmolality (280-300) Calcium (8.6-10.8) mg/dL Troponin I (0-0.03) ng/mL Urine Color Yellow (Yellow) Urine Clarity Cloudy A (Clear) Urine pH 7.0 (5.0-8.0) pH Units Ur Specific [place] 1.010 (1.010-1.025) Urine Protein Negative (Neg-Trace) mg/dL Urine Glucose (UA) Normal (Normal) mg/dL Urine Ketones Negative (Negative) mg/dL Urine Blood Negative (Negative) Urine Nitrite Negative (Negative) Urine Bilirubin Negative (Negative) Urine Urobilinogen Normal (Normal) mg/dL Ur Leukocyte Esterase Negative (Negative) Urine Microscopic RBC 0-3 (0-3) per hpf Urine Microscopic WBC 0-3 (0-3) per hpf Ur Squamous Epith Cells Many H (None-Few) per lpf Urine Bacteria None Seen (None-Few) per hpf Hyaline Casts None Seen (None-Few) per lpf Ur Culture Indicated? NO (NO) - EKG Data EKG attestation: Yes I reviewed and interpreted this EKG. EKG results narrative: EKG taken 09/27/2016 at 1754 hrs. shows a sinus rhythm at a rate of 83 beats. Blood artifact one isoelectric line but no ST elevations or depressions and an [place] cures widened QT prolongation. No previous EKG for comparison.
[2016-09-27 19:19] LABS: Basophils % 0.5 %; Eosinophils % 0.5 %; Hematocrit 36.8 % (35.3-44.9); Hemoglobin 11.4 g/dL (11.5-15.4); Immature Granulocytes % 0.4 % (0-4); Immature Platelets 3.3 % (1.1-6.1); Lymphocytes # 1.9 K/mcL (0.6-4.6); Lymphocytes % 24.6 %; Mean Corpuscular Hemoglobin 25.6 pg (28.0-33.3); Mean Corpuscular Volume 82.5 fL (83.0-100.0); Mean Platelet Volume 9.8 fL (9.4-12.4); Monocytes # 0.8 K/mcL (0.0-1.3); Monocytes % 10.9 %; Neutrophils # 4.8 K/mcL (1.6-8.9); Platelet Count 244 K/mcL (140-400); Red Blood Count 4.46 M/mcL (3.82-4.97); Red Cell Distribution Width 14.5 % (11.5-14.5); Segmented Neutrophils % 63.1 %
[2016-09-27 19:43] LABS: BUN/Creatinine Ratio 10 (6-26); Blood Urea Nitrogen 8 mg/dL (7-20); Calcium 9.1 mg/dL (8.6-10.8); Carbon Dioxide 34 mEq/L (19-29); Chloride 100 mEq/L (98-109); Glucose 96 mg/dL (70-99); Osmolality,Calculated 284 (280-300); Potassium 3.3 mEq/L (3.5-4.5); Sodium 138 mEq/L (136-145); eGFR For African Americans > 60 (> 60); eGFR For Non-African Americans > 60 (> 60)
[2016-09-27 20:36] LABS: Bilirubin,Urine Negative (Negative); Blood,Urine Negative (Negative); Clarity,Urine Cloudy (Clear); Color,Urine Yellow (Yellow); Glucose,Urine (UA) Normal (Normal); Ketones,Urine Negative (Negative); Leukocyte Esterase,Urine Negative (Negative); Nitrite,Urine Negative (Negative); Protein,Urine Negative (Neg-Trace); Urobilinogen,Urine Normal (Normal)
[2016-09-27 20:40] LABS: Bacteria,Urine None Seen per hpf (None-Few); Hyaline Casts,Urine None Seen per lpf (None-Few); RBC,Urine 0-3 per hpf (0-3); Squamous Epithelial Cell,Urine Many per lpf (None-Few); WBC,Urine 0-3 per hpf (0-3)
[2016-09-27] MEDS ORDERED: methylPREDNISolone 125 MG/2 ML VIAL IVP ONE (20:55)
[2016-09-27] MEDS ORDERED: Ipratropium/Albuterol Neb 3 ML IH ONE (20:55)
[2016-09-27] MEDS ORDERED: Nicotine 14 MG PATCH.TD24 TD ONE (21:00)
[2016-09-27 21:31] LABS: ABG Base Excess 4.3 mEq/L (-2.0 to 3.0); ABG HCO3 31.3 mEQ/L (21-27); ABG Oxygen Saturation 92 % (95-98); ABG PCO2 58 mmHg (35-45); ABG PH 7.34 pH Units (7.32-7.45); ABG PO2 69 mmHg (85-104); ABG TCO2 33.1 mEq/L (20-26)
[2016-09-27 21:39] LABS: Blood Gas FiO2 28 %
[2016-09-27] MEDS ORDERED: Acetaminophen 325 MG TABLET PO PRN (21:58)
[2016-09-27] MEDS ORDERED: 0.9 % Sodium Chloride 1,000 ML IVC SCH (22:00)
--- NOTE | 2016-09-27 22:03 | Internal Med History&Physical ---
<Sarah Barton - Last Filed: 09/27/16 22:37> Date of Encounter: 09/27/16 Time of Encounter: 21:00 Assessment and Plan (1) Acute on chronic respiratory failure with hypoxia and hypercapnia Current visit: Yes Status: Acute - Noted to have oxygen saturation drop to 82% in ED and ABG on nasal cannula oxygen revealed pH 7.34, pCO2 58, pO2 69 and HCO3 31.3. - Likely secondary to COPE exacerbation. Patient may also has some possible sleep apnea given snoring is also noted. - Continue steroid, Symbicort, Duoneb scheduled and add levofloxacin for COPD exacerbation. - Continuous supplemental oxygen. - Repeat ABG in few hours. Consider noninvasive ventilation if hypercapnia persists. - Admit to hospital for close monitoring of respiratory status with pulse oximetry and IV medication treatment. Patient has risk to develop worsening respiratory failure requiring mechanical ventilation. Total time spent on admission: 40 minutes. (2) COPD exacerbation Current visit: No Status: Acute - Likely related to active smoking. - Continue steroid, Symbicort, Duoneb scheduled. - Start levofloxacin. - Continuous pulse oximetry and supplemental oxygen. (3) Frequent falls Current visit: Yes Status: Acute - With falls 4 times in past one week per patient's daughters. - CT head, CT cervical spine, XR lumbar spine, XR sacrum & Coccyx, XR bilateral hips and XR bilateral elbow found no acute osseous abnormality. - PT/OT consulted and appreciate evaluation and treatment. (4) Failure to thrive Current visit: Yes Status: Chronic - Poor oral intake for past 2 weeks per patient's daughters. - Circulation Crew Leader consult and appreciate further recommendation. Qualifiers: Failure to thrive age range: in adult Qualified Code(s): R62.7 - Adult failure to thrive (5) Hypokalemia Current visit: Yes Status: Acute - K 3.3 in ED. - Likely secondary to Lasix use. - 40 meq of KCl IV has been started in ED. - Also check Mg. - Continue home dose KCl supplement. - Continue monitor and replenish accordingly. (6) (HFpEF) heart failure with preserved ejection fraction Current visit: Yes Status: Chronic - Echo from 07/19/16 showed LVEF 65% with moderate LV diastolic dysfunction. - Continue home dose Lasix. - Strict I/O. (7) Tobacco abuse Current visit: No Status: Chronic - Continue nicotine patch. - Smoking cessation counseling if patient is more aware. (8) Alzheimer disease Current visit: Yes Status: Chronic Qualifiers: Alzheimer's disease onset: unspecified onset Dementia behavioral disturbance: without behavioral disturbance Qualified Code(s): G30.9 - Alzheimer's disease, unspecified; F02.80 - Dementia in other diseases classified elsewhere without behavioral disturbance (9) DVT prophylaxis Current visit: No Status: Acute - SQ heparin. Internal Medicine - H&P: HPI Chief complaint: Fall Admitted From: Home Plans for Post Hospital Care: Home History of present illness: Ms. Copeland is a 86 year old female with PMH of Alzheimer disease, COPD on 2L home oxygen and dCHF (LVEF 65% with moderate diastolic dysfunction per echo on ). Patient was brought to [place] ED after a fall at side walk outside her place. On the encounter, patient is hypersomnolent, arousable to pain stimuli but goes back to sleep easily. So much of history was obtained from patient's two daughters and medical POA at bedside. According to them, patient had 4 falls this week secondary to sudden giving off of patient's bilateral legs and no loss of consciousness. They reports patient's mental status is fine most of time but occasionally can get confused and they think that's why patient ran out of door and fell today. They are also concerning as they notices that patient has reduced oral intake in the past 2 weeks. They did not notice patient having any complaint of fever, chest pain, cough, nausea, vomiting, diarrhea at home. Patient still smokes one pack per day. They state that patient is full code. CT head, CT cervical spine, XR lumbar spine, XR sacrum & Coccyx, XR bilateral hips and XR bilateral elbow found no acute osseous abnormality. CXR found no acute cardiopulmonary abnormality. Patient was noted to have oxygen saturation drop to 82% so started on supplemental oxygen, one dose of IV Solu-Medrol 125 mg and breathing treatment for the concern of COPD exacerbation. Past Med Surg Social Fam HX - Past Medical History Source: old records reviewed, obtained from family Medical history: arthritis, cancer, CHF, COPD, coronary artery disease, hyperlipidemia, hypertension Psychiatric history: anxiety - Past Surgical History Surgical History: , colectomy (for colon cancer 1998) - Social History Smoking Status: Current every day smoker Smokeless Tobacco Status: No Alcohol use: none Drug use: none - Family History Mother Living Status: Hx Family Cardiac Disorders: Yes (self,father,mother,brother) Hx Family Respiratory Disorders: Yes (self, brother) Hx Family Cancer: Yes (self, mother, father) Hx Family GI Disorders: No Hx Family Endocrine Disorder: No Hx Family Neuromuscular Disorders: No Hx Family Neurologic Disorders: Yes (mother,father) Hx Family HEENT Disorders: No Hx Family Autoimmune Disorders: Yes (brother) Internal Medicine - H&P: Meds Albuterol Neb [Proventil Neb] 2.5 mg IH TID 12/22/15 [History] Albuterol Sulfate [Proair Hfa] 2 puff IH Q4H 12/22/15 [History] Atorvastatin [Lipitor] 40 mg PO HS 12/22/15 [History] Budesonide/Formoterol 160/4.5 [Symbicort 160/4.5] 2 puff IH BIDR 12/22/15 [ History] Ca/D3/Mag#11/Zinc/Assemblies And Installations Inspector/Lev/Bor [Caltrate 600+D Plus Tablet] 1 tab PO BID [History] Clopidogrel [Plavix] 75 mg PO DAILY 12/22/15 [History] Furosemide [Lasix] 20 mg PO DAILY 12/22/15 [History] Lubiprostone [Amitiza] 24 mcg PO BID 12/22/15 [History] Mirtazapine [Remeron] 7.5 mg PO HS 12/22/15 [History] [place]-3 Fatty Acids [Fish Oil] 1,000 mg PO DAILY 12/22/15 [History] Potassium Chloride [Klor-Con 10] 20 meq PO DAILY 12/22/15 [History] Umeclidinium [place] [Incruse Ellipta] 1 puff IH DAILY 12/22/15 [History] Aspirin [Lo-Dose Aspirin EC] 81 mg PO DAILY 07/19/16 [History] Fish Oil/Borage/Flax/Om3,6,9#1 [[place] 3-6-9 1,200 mg Softgel] 600 mg PO DAILY [History] LORazepam [Ativan] 0.5 mg PO BID PRN 07/19/16 [History] Metoprolol XL (24 HR) Succ [Toprol Xl] 37.5 mg PO DAILY 07/19/16 [History] predniSONE [PredniSONE] 10 mg PO DAILY #89 tablet 07/20/16 [Rx] Loratadine [Allergy Relief] 10 mg PO DAILY 09/27/16 [History] Magnesium Oxide [Magnesium] 250 mg PO TID 09/27/16 [History] 3 Allergy/AdvReac Type Severity Reaction Status Date / Time codeine AdvReac Nausea Verified 09/21/16 14:04 Varenicline [From Chantix] AdvReac See Verified 09/21/16 14:04 Comments ROS unobtainable: due to mental status - Constitutional Vitals: Temp Pulse Resp BP Pulse Ox 97.6 F 85 20 158/62 93 09/27/16 17:27 09/27/16 21:14 09/27/16 21:57 09/27/16 21:57 09/27/16 21:26 General appearance: Present: cachectic, no acute distress Exam: Hypersomnolent, arousable to pain stimuli but falls back to sleep easily. - Head Head exam: Present: atraumatic, normocephalic - ENT ENT exam: Present: mucous membranes dry - Neck Neck exam general surgery: Present: supple, trachea midline. Absent: lymphadenopathy - Respiratory Respiratory exam: Present: wheezes (Occasional). Absent: accessory muscle use, rales, rhonchi - Cardiovascular Cardiovascular exam: Present: RRR, +S1, +S2. Absent: diastolic murmur, gallop, rubs, systolic murmur - GI/Abdominal GI/Abdominal exam: Present: normal bowel sounds, soft, no peritoneal signs. Absent: distended, tenderness - Extremities Exam Extremities exam: Present: warm, radial pulses palpable and symmetrical. Absent : calf tenderness, cyanotic, pedal edema - Neurological Exam Neurological exam: Absent: pronater drift, facial droop Additional comments: Unable to fully assess given patient is hypersomnolent, not answering questions appropriately nor following commands. - Skin Skin exam: Present: dry, intact, warm Internal Med - H&P Results - Labs CBC & Chem 7: 09/27/16 19:08 09/27/16 19:08 <Olayinka Barron - Last Filed: 09/28/16 04:37> Date of Encounter: 09/28/16 Internal Medicine - H&P: HPI History of present illness: Ms. Copeland is a 86 year old female All Systems PM: A 10-system review of systems was performed and is negative for pertinent findings except as documented above in the HPI. - Constitutional Vitals: Temp Pulse Resp BP Pulse Ox 97.8 F 79 16 133/56 90 09/28/16 03:48 09/28/16 03:48 09/28/16 03:48 09/28/16 03:48 09/28/16 03:48 Internal Med - H&P Results - Labs CBC & Chem 7: 09/28/16 03:17 09/28/16 03:17 Labs: Short CBC 09/28/16 Range/Units 03:17 WBC 6.7 (4.3-11.1) K/mcL Hgb 10.7 L (11.5-15.4) g/dL Hct 33.9 L (35.3-44.9) % Plt Count 222 (140-400) K/mcL BMP 09/28/16 03:17 Sodium 135 L Potassium 4.6 H D Chloride 102 Carbon Dioxide 26 BUN 7 Creatinine 0.74 Glucose 136 H Calcium 8.9 Liver Function 09/28/16 Range/Units 03:17 Total Bilirubin 0.4 (0.2-1.2) mg/dL AST 15 (5-34) Units/L ALT 9 (0-55) Units/L Alkaline Phosphatase 75 (38-126) Units/L Albumin 2.6 L (3.5-5.0) g/dL - ABG Interpretation ABG results: 09/28/16 00:32 ABG pH 7.33 ABG pCO2 59 H ABG pO2 61 L ABG HCO3 31.1 H ABG Total CO2 32.9 H ABG O2 Saturation 89 L ABG Base Excess 4.0 H - Attending Attestation I examined this patient and my medical decision-making was reviewed with the Resident Physician, Dr. Sarah Barton. I agree with the documented findings, disposition and treatment plan as described except to the extent set forth below. I have independently obtained history and examined the patient and my findings are summarized below: Patient is confused awake and alert, cannot provide history Lung exam reveals bilateral expiratory wheezes. Assessment and plan: COPD exacerbation. We will treat patient with IV steroids, inhaled bronchodilators and IV Levaquin. We will use BiPAP to support work of breathing or if worsening hypercapnia.
--- NOTE | 2016-09-27 22:35 | Event Note ---
Date of Encounter: 09/28/16 Time of Encounter: 22:33 I examined this patient and my medical decision-making was reviewed with the Resident Physician, Dr. Sarah Barton. I agree with the documented findings, disposition and treatment plan as described except to the extent set forth below. I have independently obtained history and examined the patient and my findings are summarized below: Patient is confused awake and alert, cannot provide history Lung exam reveals bilateral expiratory wheezes. Assessment and plan: COPD exacerbation. We will treat patient with IV steroids, inhaled bronchodilators and IV Levaquin. We will use BiPAP to support work of breathing or if worsening hypercapnia.
[2016-09-27] MEDS ORDERED: Levofloxacin 750 MG/150 ML 750 MG/150 ML BAG IVPB SCH (23:45)
[2016-09-28] MEDS: MethylPREDNISolone 40 MG/ML VIAL IVP SCH ×5 (00:21→23:18)
[2016-09-28 00:48] LABS: ABG HCO3 31.1 mEQ/L (21-27); ABG Oxygen Saturation 89 % (95-98); ABG PCO2 59 mmHg (35-45); ABG PH 7.33 pH Units (7.32-7.45); ABG PO2 61 mmHg (85-104); ABG TCO2 32.9 mEq/L (20-26)
[2016-09-28 00:52] LABS: Blood Gas FiO2 28 %
--- NOTE | 2016-09-28 01:29 | Emergency Department Note ---
START Narrative - START START: I, Robb Meyers, examined this patient and my medical decision-making was reviewed with the SOLID WASTE ANALYST/PA/Advanced Practice Nurse/Resident Physician. I agree with the documented findings, disposition and treatment plan as described except to the extent set forth below. 86-year-old female brought in to the emergency department by EMS after patient fell at home. Patient tried to leave the residence without the supervision of her family, she fell outside on the sidewalk hitting her head. Patient is unable to give a history regarding her case and presentation and the circumstances regarding the fall secondary to her dementia. Family states that the patient has also not been eating or drinking well at home and they are concerned about possible failure to thrive. Patient has fallen multiple times over the past week which is abnormal for her. She also reports having increased shortness of breath and refuses to wear oxygen. Patient has a history of COPD. On physical exam the patient has a skin tear to the right posterior elbow, she has wheezing in the bilateral posterior lung [place]. During evaluation in the emergency Department she desaturated down to 82% with a good waveform on the pulse oximeter. O2 saturation improved after administration of 2 L oxygen via nasal nasal cannula. Patient given Solu- Medrol and DuoNeb in the emergency department. She felt improved. Patient will be admitted to hospital for further care and evaluation.
[2016-09-28] MEDS: Ipratropium/Albuterol Neb 3 ML IH SCH ×4 (03:46→22:47)
[2016-09-28 03:57] LABS: Hematocrit 33.9 % (35.3-44.9); Hemoglobin 10.7 g/dL (11.5-15.4); Mean Corpuscular HGB Conc 31.6 g/dL (31.6-35.5); Mean Corpuscular Hemoglobin 25.9 pg (28.0-33.3); Mean Corpuscular Volume 82.1 fL (83.0-100.0); Mean Platelet Volume 9.9 fL (9.4-12.4); Platelet Count 222 K/mcL (140-400); Red Blood Count 4.13 M/mcL (3.82-4.97); Red Cell Distribution Width 14.4 % (11.5-14.5)
[2016-09-28 04:19] LABS: Alanine Aminotransferase 9 Units/L (0-55); Albumin 2.6 g/dL (3.5-5.0); Albumin/Globulin Ratio 0.8 (1.1-2.2); Alkaline Phosphatase 75 Units/L (38-126); Aspartate Amino Transferase 15 Units/L (5-34); BUN/Creatinine Ratio 9 (6-26); Bilirubin,Total 0.4 mg/dL (0.2-1.2); Blood Urea Nitrogen 7 mg/dL (7-20); Calcium 8.9 mg/dL (8.6-10.8); Carbon Dioxide 26 mEq/L (19-29); Chloride 102 mEq/L (98-109); Globulin 3.3 g/dL (2.4-3.5); Glucose 136 mg/dL (70-99); Osmolality,Calculated 280 (280-300); Sodium 135 mEq/L (136-145); Total Protein 5.9 g/dL (6.0-8.3); eGFR For African Americans > 60 (> 60); eGFR For Non-African Americans > 60 (> 60)
[2016-09-28 04:23] LABS: Potassium 4.6 mEq/L (3.5-4.5)
[2016-09-28 04:32] LABS: Thyroid Stimulating Hormone 0.753 mcIU/mL (0.350-4.840)
[2016-09-28] MEDS: *HR* Heparin 5,000 UNIT/ML VIAL SQ SCH ×2 (05:31→16:37)
[2016-09-28] MEDS: Budesonide/Formoterol 160/4.5 MDI IH SCH ×2 (10:17→22:47)
[2016-09-28] MEDS: Aspirin Enteric Coated 81 MG Tablet PO SCH (10:56)
[2016-09-28] MEDS: Metoprolol XL (24 HR) Succ 25 MG TAB.ER.24H PO SCH (10:56)
[2016-09-28] MEDS: Furosemide 20 MG TABLET PO SCH (10:56)
[2016-09-28] MEDS: (Umeclidinium Bromide [Incruse Ellipta] 1 PUFF) IH SCH (10:59)
--- NOTE | 2016-09-28 12:28 | Internal Med Progress Note ---
Date of Encounter: 09/28/16 Time of Encounter: 12:26 - Assessment and plan (1) COPD exacerbation Current Visit: Yes Status: Acute Assessment and plan: Improving. Continue scheduled bronchodilators, IV steroids and empiric IV antibiotics. Supplemental oxygen as needed, wean down FiO2 as tolerated. (2) Frequent falls Current Visit: Yes Status: Acute Assessment and plan: Physical and occupational therapy evaluation. (3) HTN (hypertension) Current Visit: Yes Status: Chronic Qualifiers: Hypertension type: essential hypertension Qualified Code(s): I10 - Essential (primary) hypertension (4) Tobacco abuse Current Visit: Yes Status: Chronic Assessment and plan: Continue nicotine transdermal patch. (5) Chronic respiratory failure Current Visit: Yes Status: Chronic Assessment and plan: Secondary to COPD, noted to be on home oxygen. Qualifiers: Respiratory failure complication: hypoxia Qualified Code(s): J96.11 - Chronic respiratory failure with hypoxia (6) Alzheimer disease Current Visit: Yes Status: Chronic Assessment and plan: Supportive care. Cannot provide history due to dementia. Will use when necessary IV Haldol for agitation and acute confusion. Qualifiers: Alzheimer's disease onset: late-onset Dementia behavioral disturbance: without behavioral disturbance Qualified Code(s): G30.1 - Alzheimer's disease with late onset; F02.80 - Dementia in other diseases classified elsewhere without behavioral disturbance (7) (HFpEF) heart failure with preserved ejection fraction Current Visit: Yes Status: Chronic - Subjective Interval history: Reports cough and weakness; unable to provide complete history due to underlying dementia; - Constitutional Vitals: Temp Pulse Resp BP Pulse Ox 98.2 F 75 16 125/64 91 09/28/16 11:25 09/28/16 11:25 09/28/16 11:25 09/28/16 11:25 09/28/16 11:25 General appearance: Present: cachectic, A&O X 1. Absent: answers questions appropriately - Respiratory Respiratory exam: Present: decreased breath sounds, CTAB, rhonchi (mild rhonchi at right base). Absent: accessory muscle use, rales, wheezes - Cardiovascular Cardiovascular exam: Present: RRR, +S1, +S2. Absent: diastolic murmur, gallop, rubs, systolic murmur - GI/Abdominal GI/Abdominal exam: Present: normal bowel sounds, soft, no peritoneal signs. Absent: distended, tenderness - Extremities Exam Extremities exam: Present: full ROM, warm, radial pulses palpable and symmetrical. Absent: calf tenderness, cyanotic, pedal edema Internal Medicine: Result - Labs CBC & Chem 7: 09/28/16 03:17 09/28/16 03:17 Labs: Short CBC 09/28/16 Range/Units 03:17 WBC 6.7 (4.3-11.1) K/mcL Hgb 10.7 L (11.5-15.4) g/dL Hct 33.9 L (35.3-44.9) % Plt Count 222 (140-400) K/mcL BMP 09/28/16 03:17 Sodium 135 L Potassium 4.6 H D Chloride 102 Carbon Dioxide 26 BUN 7 Creatinine 0.74 Glucose 136 H Calcium 8.9 Liver Function 09/28/16 Range/Units 03:17 Total Bilirubin 0.4 (0.2-1.2) mg/dL AST 15 (5-34) Units/L ALT 9 (0-55) Units/L Alkaline Phosphatase 75 (38-126) Units/L Albumin 2.6 L (3.5-5.0) g/dL - ABG Interpretation ABG results: ABG ABG pH 7.33 pH Units (7.32-7.45) 09/28/16 00:32 ABG pCO2 59 mmHg (35-45) H 09/28/16 00:32 ABG pO2 61 mmHg (85-104) L 09/28/16 00:32 ABG O2 Saturation 89 % (95-98) L 09/28/16 00:32 Consult Discharge Plan - Plan Referrals: Otilio Brown, MERCANTILE REPORTER [Primary Care Provider] -
--- NOTE | 2016-09-28 14:52 | Electrocardiograph Report ---
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
[2016-09-28] MEDS ORDERED: Haloperidol Lactate 5 MG/ML VIAL IVP ONE (16:22)
[2016-09-28] MEDS: Nicotine 14 MG PATCH.TD24 TD SCH (16:35)
[2016-09-28] MEDS ORDERED: Mirtazapine 15 MG TABLET PO SCH (21:00)
[2016-09-28] MEDS ORDERED: Nicotine 14 MG PATCH.TD24 TD SCH (21:00)
[2016-09-29] MEDS: *HR* Heparin 5,000 UNIT/ML VIAL SQ SCH (04:53)
[2016-09-29] MEDS: MethylPREDNISolone 40 MG/ML VIAL IVP SCH ×2 (04:53→10:55)
[2016-09-29] MEDS: Ipratropium/Albuterol Neb 3 ML IH SCH ×2 (04:55→11:23)
[2016-09-29] MEDS: Metoprolol XL (24 HR) Succ 25 MG TAB.ER.24H PO SCH (08:17)
[2016-09-29] MEDS: Aspirin Enteric Coated 81 MG Tablet PO SCH (08:19)
[2016-09-29] MEDS: Furosemide 20 MG TABLET PO SCH (08:19)
[2016-09-29] MEDS: Nicotine 14 MG PATCH.TD24 TD SCH (08:19)
[2016-09-29] MEDS: (Umeclidinium Bromide [Incruse Ellipta] 1 PUFF) IH SCH (08:20)
[2016-09-29 11:06] VITALS: BP 153/64
[2016-09-29] MEDS: Budesonide/Formoterol 160/4.5 MDI IH SCH (11:24)
[2016-09-29] MEDS ORDERED: MethylPREDNISolone 40 MG/ML VIAL IVP SCH ×2 (13:00→23:00)
--- NOTE | 2016-09-29 13:59 | Discharge Summary ---
Date of Encounter: 09/29/16 Time of Encounter: 13:52 - Discharge Diagnosis (1) COPD exacerbation Priority: Primary Status: Acute (2) Frequent falls Priority: Primary Status: Acute (3) HTN (hypertension) Priority: Secondary Status: Chronic Qualifiers: Hypertension type: essential hypertension Qualified Code(s): I10 - Essential (primary) hypertension (4) Tobacco abuse Priority: Secondary Status: Chronic (5) Chronic respiratory failure Priority: Secondary Status: Chronic Qualifiers: Respiratory failure complication: hypoxia Qualified Code(s): J96.11 - Chronic respiratory failure with hypoxia (6) Alzheimer disease Priority: Secondary Status: Chronic Qualifiers: Alzheimer's disease onset: late-onset Dementia behavioral disturbance: without behavioral disturbance Qualified Code(s): G30.1 - Alzheimer's disease with late onset; F02.80 - Dementia in other diseases classified elsewhere without behavioral disturbance (7) (HFpEF) heart failure with preserved ejection fraction Priority: Secondary Status: Chronic - Discharge Medications Prescriptions: predniSONE [PredniSONE] 40 mg PO DAILY 7 Days Home Medications: Albuterol Neb [Proventil Neb] 2.5 mg IH TID 12/22/15 [History] Albuterol Sulfate [Proair Hfa] 2 puff IH Q4H 12/22/15 [History] Atorvastatin [Lipitor] 40 mg PO HS 12/22/15 [History] Budesonide/Formoterol 160/4.5 [Symbicort 160/4.5] 2 puff IH BIDR 12/22/15 [ History] Ca/D3/Mag#11/Zinc/Lithostripper/Lev/Bor [Caltrate 600+D Plus Tablet] 1 tab PO BID [History] Clopidogrel [Plavix] 75 mg PO DAILY 12/22/15 [History] Furosemide [Lasix] 20 mg PO DAILY 12/22/15 [History] Lubiprostone [Amitiza] 24 mcg PO BID 12/22/15 [History] Mirtazapine [Remeron] 7.5 mg PO HS 12/22/15 [History] [place]-3 Fatty Acids [Fish Oil] 1,000 mg PO DAILY 12/22/15 [History] Potassium Chloride [Klor-Con 10] 20 meq PO DAILY 12/22/15 [History] Umeclidinium [place] [Incruse Ellipta] 1 puff IH DAILY 12/22/15 [History] Aspirin [Lo-Dose Aspirin EC] 81 mg PO DAILY 07/19/16 [History] Fish Oil/Borage/Flax/Om3,6,9#1 [[place] 3-6-9 1,200 mg Softgel] 600 mg PO DAILY [History] LORazepam [Ativan] 0.5 mg PO BID PRN 07/19/16 [History] Metoprolol XL (24 HR) Succ [Toprol Xl] 37.5 mg PO DAILY 07/19/16 [History] Loratadine [Allergy Relief] 10 mg PO DAILY 09/27/16 [History] Magnesium Oxide [Magnesium] 250 mg PO TID 09/27/16 [History] predniSONE [PredniSONE] 40 mg PO DAILY 7 Days 09/29/16 [Rx] Allergies/Adverse Reactions: 3 Allergy/AdvReac Type Severity Reaction Status Date / Time codeine AdvReac Nausea Verified 09/21/16 14:04 Varenicline [From Chantix] AdvReac See Verified 09/21/16 14:04 Comments Date of admission: 09/27/16 22:30 Primary care physician: Otilio Brown CNP Consults: 09/27/16 23:14 Consult to [place] Nurse [CONS] Routine Reason for SW Consult: Possible need for rehab/ecf. Discharging clinician: Abimbola Williamson Anticipated date of discharge: 09/29/16 - Patient Status Disposition: Home Health Service Condition: Fair Functional capacity at discharge: uses cane/walker Overall status at discharge: patient is progressing back to baseline - Discharge Instructions Instructions: Prednisone (By mouth), Chronic Obstructive Pulmonary Disease (DC) Follow Up With: Otilio Brown CNP [Primary Care Provider] - 10/05/16 1:20 pm Additional Instructions: F/up with PCP in 1-2 weeks Follow-up appointments: If there is not an appointment listed below, please call your physician and schedule a follow-up appointment. If you have congestive heart failure and your symptoms return, make an appointment with your physician. Medication List: Carry an up to date list of medications you are taking at all time. We have given you an updated medication list including any new medications that you have been prescribed. Please provide that list to your primary provider Symptoms: If your condition changes or you experience any of the following symptoms, notify your physician immediately: Unusual or worsening pain, fever, persistent nausea and vomiting, bleeding, increase in swelling (especially in your legs), sudden weight gain, extreme dizziness, chest pain, increased drainage or redness from a wound or incision. Go to the emergency department if you experience a problem with breathing. Weights: If you have a history of swelling or shortness of breath, weigh yourself daily and notify your physician if you have a weight gain of two or more pounds in one day or 5 or more pounds in a week. If you experience any of the warning signs for stroke: Sudden numbness or weakness of the face, arm or leg; especially on one side of the body, sudden confusion, trouble speaking or understanding, sudden trouble seeing in one or both eyes, sudden trouble walking, dizziness, loss of balance or coordination, sudden sever headache with no cause; Call 911 or go to the emergency room. Stroke is a medical emergency. Some risk factors for stroke: Age, cigarette smoking, diabetes, excessive alcohol consumption, family history , high blood pressure, overweight, physical inactivity, prior stroke, heart attack, diagnosis of carotid artery stenosis or other artery disease. If you smoke, STOP: Smoking or tobacco use significantly increases your risk of heart and lung disease. Your chance of disease greatly increases if you continue to smoke. For more information, call the [place] tobacco quit line for smoking cessation QUIT-NOW ( ) - Diet and Activity Activity: as per physical therapy, wear oxygen at all times Diet: low fat, low cholesterol, low salt diet Hospital course: Ms. Copeland is a 86 year old female with the above medical problems who was admitted with shortness of breath status post mechanical fall. She was noted to have mild acute exacerbation of COPD and has been started on IV steroids, empiric IV antibiotics along with bronchodilators and supplemental oxygen. Patient underwent multiple imaging studies and acute trauma/fracture has been ruled out. She improved well with the above regimen and is currently medically stable for discharge. She is noted to be on home oxygen and oxygen requirements are at baseline. Physical and occupation therapy evaluation has been done, recommended home health services. Referral has been completed. - Time Spent with Patient Total time spent providing and/or coordinating discharge services: Greater than 30 minutes (40 min) - Constitutional Vitals: Temp Pulse Resp BP Pulse Ox 97.8 F 74 16 153/64 94 09/29/16 11:04 09/29/16 11:04 09/29/16 11:27 09/29/16 11:04 09/29/16 11:27 General appearance: Present: cachectic, A&O X 1. Absent: answers questions appropriately - Respiratory Respiratory exam: Present: decreased breath sounds (decreased air entry B/L, no active wheezing), CTAB. Absent: accessory muscle use, rales, rhonchi, wheezes
--- NOTE | 2016-09-29 14:02 | Physician Discharge Referral ---
Home Health/Hosp Referral Info Transfer to: Home Health Attending Provider: Abimbola Williamson Provider in Charge Post Discharge: PCP - Diagnosis (1) COPD exacerbation Priority: Primary Status: Acute (2) Frequent falls Priority: Primary Status: Acute (3) HTN (hypertension) Priority: Secondary Status: Chronic (4) Tobacco abuse Priority: Secondary Status: Chronic (5) Chronic respiratory failure Priority: Secondary Status: Chronic (6) Alzheimer disease Priority: Secondary Status: Chronic (7) (HFpEF) heart failure with preserved ejection fraction Priority: Secondary Status: Chronic - Respiratory Orders Oxygen / L per min (2L/min via NC) Smoking Cessation: Smoking cessation has been advised. For more information, call the [employer] Quit Line at 6-432-XPBV-NOW. - Diet/Nutrition Diet/Nutrition Orders: Cardiac - Activity Activity Orders: Ambulate - Services Needed Following services are medically necessary services: Nursing, Physical Therapy, Occupational Therapy - Transfer Medications Prescriptions: predniSONE [PredniSONE] 40 mg PO DAILY 7 Days Home Medications: Albuterol Neb [Proventil Neb] 2.5 mg IH TID 12/22/15 [History] Albuterol Sulfate [Proair Hfa] 2 puff IH Q4H 12/22/15 [History] Atorvastatin [Lipitor] 40 mg PO HS 12/22/15 [History] Budesonide/Formoterol 160/4.5 [Symbicort 160/4.5] 2 puff IH BIDR 12/22/15 [ History] Ca/D3/Mag#11/Zinc/Content Assistant/Lve/Bor [Caltrate 600+D Plus Tablet] 1 tab PO BID [History] Clopidogrel [Plavix] 75 mg PO DAILY 12/22/15 [History] Furosemide [Lasix] 20 mg PO DAILY 12/22/15 [History] Lubiprostone [Amitiza] 24 mcg PO BID 12/22/15 [History] Mirtazapine [Remeron] 7.5 mg PO HS 12/22/15 [History] [place]-3 Fatty Acids [Fish Oil] 1,000 mg PO DAILY 12/22/15 [History] Potassium Chloride [Klor-Con 10] 20 meq PO DAILY 12/22/15 [History] Umeclidinium [place] [Incruse Ellipta] 1 puff IH DAILY 12/22/15 [History] Aspirin [Lo-Dose Aspirin EC] 81 mg PO DAILY 07/19/16 [History] Fish Oil/Borage/Flax/Om3,6,9#1 [[place] 3-6-9 1,200 mg Softgel] 600 mg PO DAILY [History] LORazepam [Ativan] 0.5 mg PO BID PRN 07/19/16 [History] Metoprolol XL (24 HR) Succ [Toprol Xl] 37.5 mg PO DAILY 07/19/16 [History] Loratadine [Allergy Relief] 10 mg PO DAILY 09/27/16 [History] Magnesium Oxide [Magnesium] 250 mg PO TID 09/27/16 [History] predniSONE [PredniSONE] 40 mg PO DAILY 7 Days 09/29/16 [Rx] Allergies/Adverse Reactions: 3 Allergy/AdvReac Type Severity Reaction Status Date / Time codeine AdvReac Nausea Verified 09/21/16 14:04 Varenicline [From Chantix] AdvReac See Verified 09/21/16 14:04 Comments Certification: Further, I certify that my clinical findings support that this patient is homebound (i.e. absences from home require considerable and taxing effort and are for medical reasons or judaism services or infrequently or short duration when for other reasons) because: Homebound Reason: Patient requires assistance of a person or device to safely leave home, Severity of cardiac or pulmonary status limits activity tolerance Attestation: My signature below is to certify that this patient is under my care and that I, or nurse practitioner, or a physician's dental assistant teacher working with me, has a face-to -face encounter with this patient.
== END 2016-09-29 15:29 | disposition home health service (06) | DRG 190 ==
LOC: 3BNU 17:26 → EMEROO 17:26 → 3BNU 22:21 → SUATTDRO 22:30
PROVIDERS: ADMIT Internal Medicine Hematology & Oncology; ATTEND Internal Medicine

== ENCOUNTER 2017-10-10 15:13 | Inpatient (IN) ==
--- NOTE | 2017-10-10 16:35 | Emergency Department Note ---
Disposition Clinical Impression: Syncope Disposition: Admitted As Inpatient Condition: Good General Adult HPI - General Chief complaint: ED General Medical Stated complaint: Hypotension Source: patient, family, EMS Mode of arrival: EMS Limitations: no limitations - History of Present Illness HPI Narrative: Grazyna Copeland is an 87-yo female pt with PMHx of Alzheimer's dementia, colon cancer (in 1998, for which she received a colectomy and chemotherapy and had a negative colonoscopy 08/2017), HTN, HLD, COPD, HFpEF with normal echo in 2016, CAD with LICA stent, and continued smoking. She denies any hx of afib (benign Holter monitor reading in 2015), ME, PE, DVT, or CVA. PSHx includes cholecystectomy. Her chief complaint today is low blood pressure and dizziness since late this morning, as well as some epigastric discomfort. This is in the setting of a fall witnessed by her daughter last night as she was going to bed when she lost her balance hit the back of her head on the nightstand and injured her left hand, but had no symptoms before or after this episode, aside from mild pain. Today she describes her dizziness as both lightheadedness and room-spinning sensations intermittently, and according to family had an episode of unresponsiveness and possible apnea for a few seconds, after which she was disoriented for a few minutes. Patient claims that she did not lose consciousness and did not fall during this episode, but admits to being confused and not remembering everything from the episode. She admits to weight loss of approximately 3 pounds a week for the past 3 months, as well as chronic diarrhea and anorexia, but no nausea, vomiting, bloody stool, or melena. She admits to weakness, fatigue, intermittent palpitations that have not occurred today, and denies fever, chills, chest pain, shortness of breath, headaches, numbness, tingling, and sick contacts. She states that she feels normal at the moment. Pt Subjective Complaint: dizziness Onset (ago): hour(s) Pain Scale: 0 Consistency: intermittent Improves with: nothing Worsens with: nothing Associated symptoms: Reports: loss of appetite, malaise, weakness Treatments Prior to Arrival: none - Related Data Home Medications Medication Instructions Recorded Confirmed Albuterol Neb [Proventil Neb] 2.5 mg IH TID 12/22/15 10/10/17 Albuterol Sulfate [Proair Hfa] 2 puff IH Q4H 12/22/15 10/10/17 Atorvastatin [Lipitor] 40 mg PO HS 12/22/15 10/10/17 Furosemide [Lasix] 20 mg PO DAILY 12/22/15 10/10/17 LORazepam [Ativan] 0.5 mg PO 1800 MDD 1 mg 07/19/16 10/10/17 Magnesium Oxide [Mag-Ox] 400 mg PO TID 10/31/16 10/10/17 Budesonide/Formoterol 160/4.5 2 puff IH BID 07/17/17 10/10/17 [Symbicort 160/4.5] Levocetirizine Dihydrochloride 5 mg PO DAILY 07/17/17 10/10/17 Umeclidinium [place] [Incruse 1 puff IH DAILY 07/17/17 10/10/17 Ellipta] Potassium Chloride [K-Tab ER] 20 meq PO DAILY 10/10/17 10/10/17 Allergies Allergy/AdvReac Type Severity Reaction Status Date / Time iodine Allergy Rash Verified 09/20/17 19:10 codeine AdvReac Swelling Verified 09/20/17 19:10 of Lip/Tongue/Throat Varenicline [From Chantix] AdvReac See Verified 06/11/17 09:21 Comments Constitutional: Reports: weakness, weight change. Denies: fever, chills, night sweats Eyes: Reports: vision change ENT ED: Denies: hearing loss Cardiovascular: Denies: chest pain, palpitations, dyspnea on exertion, edema, syncope Respiratory: Denies: cough, dyspnea, wheezes Gastrointestinal: Reports: abdominal pain, diarrhea. Denies: nausea, vomiting, melena, hematochezia Genitourinary: Denies: urgency, dysuria Musculoskeletal: Denies: back pain, neck pain Integumentary: Reports: abrasion Neurological: Reports: weakness, confusion, vertigo. Denies: headache, numbness , paresthesias, abnormal gait Endocrine: Reports: fatigue Hematological/Lymphatic: Denies: easy bleeding Past Medical History - Past Medical History Medical history: Reports: arthritis, cancer, CHF, COPD, coronary artery disease , dementia, hyperlipidemia, hypertension Surgical history: Reports: , cholecystectomy, colectomy Psychiatric history: Reports: anxiety VASCULAR TECH history: Reports: no VASCULAR TECH history - Social History Smoking Status: Current every day smoker Smokeless Tobacco Status: No Alcohol use: Reports: none Drug use: Reports: none Physical Exam On exam pt. is alert and oriented x3, and in no acute distress. She RRR and lungs are CTAB. She has no edema and no deficits on neurological exam. She does have a bandage on the dorsal surface of her right hand that she says is covering a small abrasion from her fall the previous evening. She has no visible head trauma or other pertinent findings. - General Limitations: no limitations General appearance: alert, in no apparent distress - Head Head exam: atraumatic, normocephalic - Eye Eye exam: Present: normal appearance, PERRL, EOMI - ENT ENT exam: normal exam, mucous membranes moist - Neck Neck exam: Present: normal inspection - Chest Chest inspection: Present: symmetric chest wall rise - Respiratory Respiratory exam: Present: normal lung sounds bilaterally. Absent: respiratory distress, wheezes, accessory muscle use - Cardiovascular Cardiovascular exam: Present: regular rate, normal rhythm, normal heart sounds. Absent: irregular rhythm - Abdominal Exam Abdominal exam: Present: soft, Non-Tender, hyperactive bowel sounds. Absent: tenderness, distention, guarding, rebound, rigidity - Expanded Upper Extremity Exam Hand exam: Present: abrasion (bandaged abrasion on dorsal right hand) - Expanded Lower Extremity Exam Hip/Pelvis exam: Present: normal inspection Neurovascular/Tendon exam: Present: normal capillary refill, normal fine/light touch. Absent: pulse deficit, motor deficit, sensory deficit - Back Exam Back exam: Present: normal inspection. Absent: tenderness - Neurological Exam Neurological exam: Present: alert, oriented X3, CN II-XII intact. Absent: motor sensory deficit - Psychiatric Psychiatric exam: Present: normal affect, normal mood - Skin Skin exam: Present: warm, dry. Absent: rash, diaphoresis Course Vital Signs Temperature 98.1 F 10/10/17 15:53 Pulse Rate 73 10/10/17 15:53 Respiratory Rate 20 10/10/17 15:53 Blood Pressure 125/53 10/10/17 15:53 O2 Sat by Pulse Oximetry 99 10/10/17 15:53 Temperature 98.8 F 10/13/17 06:56 Pulse Rate 71 10/13/17 06:56 Respiratory Rate 16 10/13/17 10:47 Blood Pressure 168/73 10/13/17 06:56 O2 Sat by Pulse Oximetry 95 10/13/17 10:47 Oxygen Delivery Oxygen Delivery Room Air Medical Decision Making - Lab Data Result diagrams: 10/11/17 03:31 10/12/17 07:04 Lab Results 10/10/17 10/10/17 10/10/17 Range/Units 18:01 18:01 19:57 Hgb 12.4 (11.5-15.4) g/dL Hct 37.9 (35.3-44.9) % Sodium 133 L (136-145) mEq/L Potassium 3.3 L (3.5-5.1) mEq/L Chloride 94 L (98-107) mEq/L Carbon Dioxide 33 H (23-29) mEq/L BUN 6 L (8-23) mg/dL Creatinine 0.64 (0.60-1.20) mg/dL Est GFR ( Amer) > 60 (> 60) Est GFR (Non-Af Amer) > 60 (> 60) BUN/Creatinine Ratio 9 (6-26) Glucose 98 (70-105) mg/dL Calculated Osmolality 274 L (280-300) Calcium 9.2 (8.6-10.3) mg/dL Troponin I < 0.03 (< 0.04) ng/mL Urine Color Yellow (Yellow) Urine Clarity Cloudy A (Clear) Urine pH 7.0 (5.0-8.0) pH Units Ur Specific [place] 1.015 (1.010-1.025) Urine Protein Negative (Neg-Trace) mg/dL Urine Glucose (UA) Normal (Normal) mg/dL Urine Ketones Negative (Negative) mg/dL Urine Blood Negative (Negative) Urine Nitrite Negative (Negative) Urine Bilirubin Negative (Negative) Urine Urobilinogen Normal (Normal) mg/dL Ur Leukocyte Esterase Moderate H (Negative) Urine Microscopic RBC 3-5 H (0-3) per hpf Urine Microscopic WBC 3-5 H (0-3) per hpf Ur Squamous Epith Cells Many H (None-Few) per lpf Urine Bacteria None Seen (None-Few) per hpf Hyaline Casts None Seen (None-Few) per lpf Ur Culture Indicated? NO. A (NO)
--- NOTE | 2017-10-10 17:29 | Emergency Department Note ---
Disposition Clinical Impression: Syncope Qualifiers: Syncope type: unspecified Qualified Code(s): R55 - Syncope and collapse Disposition: Admitted As Inpatient Condition: Good Time of Disposition: 20:56 General Adult HPI - General Chief complaint: ED General Medical Stated complaint: Hypotension Source: patient, family, EMS Mode of arrival: EMS Limitations: no limitations Nursing Notes Reviewed: Yes Vital Signs Reviewed: Yes - History of Present Illness HPI Narrative: Patient is an 87-year-old female with a past medical history of CHF, COPD, CAD, HTN, and dementia since the emergency department for evaluation of syncopal episodes. According to the patient's family member who lives at home with her states that 2 different times today the patient had episodes where she was sitting up in the chair and went unresponsive for approximately a minute it was difficult to arouse and they took her blood pressure at that time and she was noted to be hypotensive in the 80s/60s. States that the patient is also had a loss of appetite over the past 5 days. Patient herself is denying any symptoms of fevers, chills, chest pain, dyspnea, nausea, vomiting, abdominal pain, dizziness, focal neurological deficits, urinary symptoms or any other associated symptoms. No fall or injury. Pain Scale: 0 Improves with: nothing Worsens with: nothing Associated symptoms: Reports: loss of appetite, malaise, weakness Treatments Prior to Arrival: none - Related Data Home Medications Medication Instructions Recorded Confirmed Albuterol Neb [Proventil Neb] 2.5 mg IH TID 12/22/15 10/10/17 Albuterol Sulfate [Proair Hfa] 2 puff IH Q4H 12/22/15 10/10/17 Atorvastatin [Lipitor] 40 mg PO HS 12/22/15 10/10/17 Furosemide [Lasix] 20 mg PO DAILY 12/22/15 10/10/17 LORazepam [Ativan] 0.5 mg PO 1800 MDD 1 mg 07/19/16 10/10/17 Magnesium Oxide [Mag-Ox] 400 mg PO TID 10/31/16 10/10/17 Budesonide/Formoterol 160/4.5 2 puff IH BID 07/17/17 10/10/17 [Symbicort 160/4.5] Levocetirizine Dihydrochloride 5 mg PO DAILY 07/17/17 10/10/17 Umeclidinium [place] [Incruse 1 puff IH DAILY 07/17/17 10/10/17 Ellipta] Potassium Chloride [K-Tab ER] 20 meq PO DAILY 10/10/17 10/10/17 Allergies Allergy/AdvReac Type Severity Reaction Status Date / Time iodine Allergy Rash Verified 09/20/17 19:10 codeine AdvReac Swelling Verified 09/20/17 19:10 of Lip/Tongue/Throat Varenicline [From Chantix] AdvReac See Verified 06/11/17 09:21 Comments Constitutional: Reports: weakness, weight change. Denies: fever, chills, night sweats Eyes: Reports: vision change ENT ED: Denies: hearing loss Cardiovascular: Denies: chest pain, palpitations, dyspnea on exertion, edema, syncope Respiratory: Denies: cough, dyspnea, wheezes Gastrointestinal: Reports: abdominal pain, diarrhea. Denies: nausea, vomiting, melena, hematochezia Genitourinary: Denies: urgency, dysuria Musculoskeletal: Denies: back pain, neck pain Integumentary: Reports: abrasion Neurological: Reports: weakness, confusion, vertigo. Denies: headache, numbness , paresthesias, abnormal gait Endocrine: Reports: fatigue Hematological/Lymphatic: Denies: easy bleeding Past Medical History - Past Medical History Attestation: Yes The following information was validated with the patient. Medical history: Reports: arthritis, cancer, CHF, COPD, coronary artery disease , dementia, hyperlipidemia, hypertension Surgical history: Reports: , cholecystectomy, colectomy Psychiatric history: Reports: anxiety SOCIAL WORK PROFESSOR history: Reports: no SOCIAL WORK PROFESSOR history - Social History Smoking Status: Current every day smoker Smokeless Tobacco Status: No Alcohol use: Reports: none Drug use: Reports: none Physical Exam CONSTITUTIONAL: Alert and oriented X3, well-nourished, well appearing, in no apparent distress HEAD: Normocephalic; atraumatic. EYES: PERRL, no scleral icterus. NOSE: The nose is normal in appearance without rhinorrhea RESP: Normal chest excursion with respiration; breath sounds clear and equal bilaterally; no wheezes, rhonchi, or rales CARD: Regular rhythm, without murmurs, rub or gallop ABD: Non-distended; non-tender, soft,without rigidity, rebound or guarding SKIN: Normal for age and race; warm and dry; no apparent lesions NEUROLOGICAL: Patient is alert and oriented times three. Cranial nerves III- XII are intact. Sensory and motor functions are intact. Strength is 5/5 for flexion and extension in all 4 extremities. Patellar DTRS are equal and intact. Finger to nose testing is equal and normal bilaterally. - General Limitations: no limitations General appearance: alert, in no apparent distress Course Course Narrative: On exam patient has no focal neurological deficits and her vital signs are within normal limits with no signs of hypotension while in the emergency department. She was worked up for syncopal events with a metabolic panel, H&H, TSH as well as evaluating for ACS as cause of the patient's syncopal events. The patient'sNo acute ischemic changes are noted on the EKG. No significant changes compared to the old EKG dated on was nondiagnostic. Lab work was unremarkable urine was negative for signs of infection. Discussed plan to admit the patient hospital for syncopal events. Patient's case was discussed with and he accepts. Vital Signs Temperature 98.1 F 10/10/17 15:53 Pulse Rate 73 10/10/17 15:53 Respiratory Rate 20 10/10/17 15:53 Blood Pressure 125/53 10/10/17 15:53 O2 Sat by Pulse Oximetry 99 10/10/17 15:53 Temperature 97.6 F 10/10/17 22:15 Pulse Rate 56 10/10/17 22:15 Respiratory Rate 14 10/10/17 22:15 Blood Pressure 122/69 10/10/17 22:15 O2 Sat by Pulse Oximetry 97 10/11/17 01:12 Oxygen Delivery Oxygen Delivery Room Air Medical Decision Making - Medical Records Medical records reviewed: Yes I reviewed the patient's medical records. - Lab Data Lab results reviewed: Yes I reviewed the patient's lab results. Result diagrams: 10/10/17 18:01 10/10/17 18:01 Lab Results 10/10/17 10/10/17 10/10/17 Range/Units 18: 18:01 19:57 Hgb 12.4 (11.5-15.4) g/dL Hct 37.9 (35.3-44.9) % Sodium 133 L (136-145) mEq/L Potassium 3.3 L (3.5-5.1) mEq/L Chloride 94 L (98-107) mEq/L Carbon Dioxide 33 H (23-29) mEq/L BUN 6 L (8-23) mg/dL Creatinine 0.64 (0.60-1.20) mg/dL Est GFR ( Amer) > 60 (> 60) Est GFR (Non-Af Amer) > 60 (> 60) BUN/Creatinine Ratio 9 (6-26) Glucose 98 (70-105) mg/dL Calculated Osmolality 274 L (280-300) Calcium 9.2 (8.6-10.3) mg/dL Troponin I < 0.03 (< 0.04) ng/mL Urine Color Yellow (Yellow) Urine Clarity Cloudy A (Clear) Urine pH 7.0 (5.0-8.0) pH Units Ur Specific [place] 1.015 (1.010-1.025) Urine Protein Negative (Neg-Trace) mg/dL Urine Glucose (UA) Normal (Normal) mg/dL Urine Ketones Negative (Negative) mg/dL Urine Blood Negative (Negative) Urine Nitrite Negative (Negative) Urine Bilirubin Negative (Negative) Urine Urobilinogen Normal (Normal) mg/dL Ur Leukocyte Esterase Moderate H (Negative) Urine Microscopic RBC 3-5 H (0-3) per hpf Urine Microscopic WBC 3-5 H (0-3) per hpf Ur Squamous Epith Cells Many H (None-Few) per lpf Urine Bacteria None Seen (None-Few) per hpf Hyaline Casts None Seen (None-Few) per lpf Ur Culture Indicated? NO. A (NO) - Radiology Data Radiology results reviewed: Yes I reviewed the patient's radiology results. Chest X-Ray 10/10/17 16:55 IMPRESSION: Question of COPD with chronic lung changes. Mild discoid atelectasis at the bilateral lung bases. D/ / Rivera Mosley MD / Rivera Mosley MD Interpreting Provider: Rivera Mosley MD Head CT 10/10/17 16:56 IMPRESSION: No acute intracranial abnormality. Diffuse atrophic changes with findings suggesting chronic microvascular ischemia D/ / Inocencio Mock MD / Inocencio Mock MD Interpreting Provider: Inocencio Mock MD Cervical Spine CT 10/10/17 16:57 IMPRESSION: No acute abnormality of the cervical spine. Multilevel degenerative changes not unusual for a patient of this age. 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 D/ / Pablo Gamez MD / Pablo Gamez MD Interpreting Provider: Pablo Gamez MD - EKG Data EKG #1 EKG attestation: Yes I reviewed and interpreted this EKG. EKG results narrative: EKG done at 17:10 shows sinus rhythm at a rate of 70 bpm. Normal axis. Intervals within normal limits. No signs of ST elevation, ST depression or Q waves present. No signs of ischemia. Patient has one PVC. As well as diffuse inverted P waves.
[2017-10-10 18:30] LABS: Hematocrit 37.9 % (35.3-44.9); Hemoglobin 12.4 g/dL (11.5-15.4)
[2017-10-10 18:52] LABS: Chloride 94 mEq/L (98-107); Potassium 3.3 mEq/L (3.5-5.1); Sodium 133 mEq/L (136-145); Troponin I < 0.03 ng/mL (< 0.04)
[2017-10-10 19:05] LABS: BUN/Creatinine Ratio 9 (6-26); Blood Urea Nitrogen 6 mg/dL (8-23); Calcium 9.2 mg/dL (8.6-10.3); Carbon Dioxide 33 mEq/L (23-29); Glucose 98 mg/dL (70-105); Osmolality,Calculated 274 (280-300); eGFR For Non-African Americans > 60 (> 60)
[2017-10-10 20:11] LABS: Bilirubin,Urine Negative (Negative); Blood,Urine Negative (Negative); Clarity,Urine Cloudy (Clear); Color,Urine Yellow (Yellow); Glucose,Urine (UA) Normal (Normal); Ketones,Urine Negative (Negative); Leukocyte Esterase,Urine Moderate (Negative); Nitrite,Urine Negative (Negative); Protein,Urine Negative (Neg-Trace); Specific Gravity,Urine 1.015 (1.010-1.025); Urobilinogen,Urine Normal (Normal)
[2017-10-10 20:13] LABS: Bacteria,Urine None Seen per hpf (None-Few); Hyaline Casts,Urine None Seen per lpf (None-Few); Squamous Epithelial Cell,Urine Many per lpf (None-Few)
[2017-10-10] MEDS ORDERED: Nicotine 14 MG PATCH.TD24 TD STA (20:58)
[2017-10-10] MEDS ORDERED: Naloxone 0.4 MG/ML INJ IVP PRN (21:24)
[2017-10-10] MEDS: 0.9 % Sodium Chloride 1,000 ML IVC SCH (22:41)
[2017-10-10] MEDS ORDERED: Potassium Chloride 40 MEQ, Lidocaine 1% 2 ML in D5% in Water 500 ML IVPB ONE (23:46)
--- NOTE | 2017-10-11 00:40 | Internal Med History&Physical ---
Date of Encounter: 10/11/17 Time of Encounter: 23:52 Internal Medicine - H&P: HPI Chief complaint: Syncope History of present illness: Ms. Copeland is a pleasant 87 year old female with a past medical history of coronary artery disease, dementia, hypertension, hyperlipidemia and heart failure with preserved ejection fraction with an EF of 65% who presents to the ED after a 2 syncopal episode. Patient is a poor historian due to baseline dementia and much of the history was obtained from medical records. According to the family around 6 AM this morning patient appeared pale and briefly cyanotic after an episode where she appeared to stop breathing. After she regained consciousness her blood pressure was taken and found to be the 80s over 60s. A second episode occurred later on while she was sitting up in the chair and reportedly became unresponsive for about a minute and was difficult to arouse. There is report of decreased appetite over the past 5 days however patient states that she eats which he can. Patient otherwise denies any recent fever, chills, chest pain, shortness of breath, nausea, vomiting, diarrhea or urinary symptoms. Upon presentation to the ED patient's vitals are stable Laboratory findings were unremarkable only for a mild hyponatremia and hypokalemia of 133 and 3.2 respectively. Kidney function was within normal limits. There is an elevated bicarbonate of 33. CT imaging of the head and neck were performed with no acute findings. Chest x-ray showed chronic lung changes and mild discoid atelectasis at the bilateral bilateral lung bases. EKG was performed which was unremarkable and showed no acute changes from previous EKG. Of note patient had a Holter monitor assessment in 2016 which showed sinus bradycardia with an average heart rate of 53 bpm, occasional PVCs, frequent PACs and one short episode of atrial tachycardia. Additionally, she had a nuclear stress test approximately one year ago which was negative for ischemia. Past Med Surg Social Fam HX - Past Medical History Medical history: arthritis, cancer, CHF, COPD, coronary artery disease, dementia , hyperlipidemia, hypertension Additional medical history: colon cancer Psychiatric history: anxiety - Past Surgical History Surgical History: , cholecystectomy, colectomy Additional surgical history: colon resection. - Social History Smoking Status: Current every day smoker Smokeless Tobacco Status: No Alcohol use: none Drug use: none - Family History Mother Living Status: Hx Family Cardiac Disorders: Yes (self,father,mother,brother) Hx Family Respiratory Disorders: Yes (self, brother) Hx Family Cancer: Yes (self, mother, father) Hx Family GI Disorders: No Hx Family Endocrine Disorder: No Hx Family Neuromuscular Disorders: No Hx Family Neurologic Disorders: Yes (mother,father) Hx Family HEENT Disorders: No Hx Family Autoimmune Disorders: Yes (brother) Internal Medicine - H&P: Meds Albuterol Neb [Proventil Neb] 2.5 mg IH TID 12/22/15 [History] Albuterol Sulfate [Proair Hfa] 2 puff IH Q4H 12/22/15 [History] Atorvastatin [Lipitor] 40 mg PO HS 12/22/15 [History] Furosemide [Lasix] 20 mg PO DAILY 12/22/15 [History] LORazepam [Ativan] 0.5 mg PO 1800 MDD 1 mg 07/19/16 [History] Magnesium Oxide [Mag-Ox] 400 mg PO TID 10/31/16 [History] Budesonide/Formoterol 160/4.5 [Symbicort 160/4.5] 2 puff IH BID 07/17/17 [ History] Levocetirizine Dihydrochloride 5 mg PO DAILY 07/17/17 [History] Umeclidinium [place] [Incruse Ellipta] 1 puff IH DAILY 07/17/17 [History] Potassium Chloride [K-Tab ER] 20 meq PO DAILY 10/10/17 [History] 3 Allergy/AdvReac Type Severity Reaction Status Date / Time iodine Allergy Rash Verified 09/20/17 19:10 codeine AdvReac Swelling Verified 09/20/17 19:10 of Lip/Tongue/Throat Varenicline [From Chantix] AdvReac See Verified 06/11/17 09:21 Comments All Systems PM: A 10-system review of systems was performed and is negative for pertinent findings except as documented above in the HPI. - Constitutional Constitutional: no chills, no fever(s), no night sweats - EENT Eyes: no change in vision, no discharge, no pain, no photophobia Ears: no ear discharge, no ear pain, no tinnitus Nose, mouth and throat: no dysphagia, no nasal discharge, no neck pain, no sore throat - Cardiovascular Cardiovascular ROS IM: no chest pain, no diaphoresis, no dyspnea, no lightheadedness, no palpitations, no syncope - Respiratory Respiratory: no cough, no dyspnea, no wheezing, no excessive phlegm production - Gastrointestinal Gastrointestinal: no abdominal pain, no diarrhea, no hematemesis, no hematochezia, no melena, no nausea, no vomiting - Genitourinary Genitourinary: no change in urinary stream, no dysuria, no flank pain, no hematuria - Musculoskeletal Musculoskeletal ROS IM: no numbness, no tingling - Integumentary Integumentary IM: no rash, no unusual bruising - Neurological Neurological ROS: no confusion, no convulsions, no focal weakness, no numbness, no tingling, no tremor(s) - Hematologic/Lymphatic Hematologic/Lymphatic: no easy bruising - Constitutional Vitals: Temp Pulse Resp BP Pulse Ox 97.6 F 56 14 122/69 95 10/10/17 22:15 10/10/17 22:15 10/10/17 22:15 10/10/17 22:15 10/10/17 22:15 Exam: General: Alert and oriented 1. Lying in a bed not in no acute distress Skin:Normal color, no rash, no lesions. HEENT:EOM, pupils equal, round and reactive. Cardiovascular:Normal S1 & S2 with distant heart sounds, no rubs, murmurs or gallops. No JVD. Pulse regular. Lungs:Normal breath sounds, no wheezes or crackles. Abdomen:Soft, non-tender, no rigidity. Extremities:No deformity, no edema or tenderness; patient noted to be unsteady with ambulation to the bathroom. Neurological:Normal cognition and motor skills. Pulses:Carotid and radial pulses normal +2. Rest of the physical exam is non contributory Internal Med - H&P Results - Labs CBC & Chem 7: 10/11/17 03:31 10/11/17 03:31 - Assessment and plan (1) Syncope Current Visit: Yes Status: Acute Assessment and plan: 2 syncopal episodes witnessed by family members. Concern for cardiac etiology. Less likely seizure vs stroke based on history of reported cyanosis, normal head CT and no reports of loss of bowel or bladder control or findings of tongue biting on physical exam. Patient does appear to be dry. Orthostatics were assessed and found to be normal. However patient has received IV hydration since coming up to the floor. Review of EKG shows no acute changes. Patient heart rate appears to run in the low 50s based on Holter monitor results in 2016 with occasional PVCs and PACs. We will place patient on telemetry. Continue with IV hydration maintenance fluids Obtain echocardiogram and carotid duplex. Check orthostatics every 4 hours. Consider cardiology consultation in the morning. Qualifiers: Syncope type: unspecified Qualified Code(s): R55 - Syncope and collapse (2) Hypokalemia Current Visit: No Status: Acute Assessment and plan: Mild hypokalemia 3.3. We will update (3) COPD (chronic obstructive pulmonary disease) Current Visit: Yes Status: Acute Assessment and plan: Stable. No evidence of acute exacerbation. Continue with home inhalers. Qualifiers: Qualified Code(s): J44.9 - Chronic obstructive pulmonary disease, unspecified (4) Metabolic alkalosis Current Visit: Yes Status: Acute Assessment and plan: Metabolic alkalosis with a bicarbonate of 33. Likely chronic and compensatory in the setting of COPD history. (5) Hyponatremia Current Visit: Yes Status: Acute Assessment and plan: Mild hyponatremia 133. We will give normal saline and monitor. (6) (HFpEF) heart failure with preserved ejection fraction Current Visit: No Status: Chronic Assessment and plan: Lung sounds clear. No lower shimmery edema noted. Patient does not appear volume overloaded. We will continue home dose of 20 mg of Lasix. Monitor I's and O's. (7) HTN (hypertension) Current Visit: No Status: Chronic Assessment and plan: Blood pressure stable. Qualifiers: Hypertension type: essential hypertension Qualified Code(s): I10 - Essential (primary) hypertension (8) DVT prophylaxis Current Visit: No Status: Acute Assessment and plan: Subcutaneous heparin. - Time Spent With Patient Total time spent is greater than 50% in coordination of care (as documented) at patient's floor/unit and/or counseling patient:
[2017-10-11] MEDS: *HR* Heparin 5,000 UNIT/ML VIAL SQ SCH ×3 (00:57→16:37)
[2017-10-11 04:25] LABS: Basophils # 0.1 K/mcL (0.0-0.2); Basophils % 0.8 %; Eosinophils # 0.1 K/mcL (0.0-0.6); Hematocrit 36.9 % (35.3-44.9); Hemoglobin 11.9 g/dL (11.5-15.4); Immature Granulocytes % 0.4 % (0-4); Mean Corpuscular HGB Conc 32.2 g/dL (31.6-35.5); Mean Corpuscular Hemoglobin 26.3 pg (28.0-33.3); Mean Corpuscular Volume 81.6 fL (83.0-100.0); Mean Platelet Volume 10.8 fL (9.4-12.4); Monocytes # 0.9 K/mcL (0.0-1.3); Monocytes % 11.2 %; Neutrophils # 4.8 K/mcL (1.6-8.9); Platelet Count 248 K/mcL (140-400); Red Blood Count 4.52 M/mcL (3.82-4.97); Red Cell Distribution Width 15.4 % (11.5-14.5); Segmented Neutrophils % 60.6 %
[2017-10-11 04:47] LABS: Alanine Aminotransferase 9 Units/L (7-52); Albumin 3.3 g/dL (3.5-5.7); Albumin/Globulin Ratio 1.6 (1.1-2.2); Alkaline Phosphatase 95 Units/L (34-104); Aspartate Amino Transferase 15 Units/L (13-39); BUN/Creatinine Ratio 10 (6-26); Bilirubin,Total 0.4 mg/dL (0.3-1.0); Blood Urea Nitrogen 6 mg/dL (8-23); Carbon Dioxide 33 mEq/L (23-29); Chloride 97 mEq/L (98-107); Globulin 2.1 g/dL (2.4-3.5); Glucose 97 mg/dL (70-105); Magnesium 1.8 mg/dL (1.6-2.6); Osmolality,Calculated 274 (280-300); Phosphorous 2.9 mg/dL (2.7-4.5); Potassium 3.6 mEq/L (3.5-5.1); Sodium 133 mEq/L (136-145); Total Protein 5.4 g/dL (6.4-8.9); eGFR For Non-African Americans > 60 (> 60)
--- NOTE | 2017-10-11 07:34 | Internal Med Progress Note ---
Hospitalist Progress Note - Encounter Date of Encounter: 10/11/17 Time of Encounter: 09:10 - Subjective Interval History: Awake. daughters at bedside provide all history as pt with dementia and only oriented to self at baseline. Pt has no complaints. Denies any cp, sob, abd pain , dizziness, weakness. Daughter notes that during syncopal episode she did not appear to be breathing and was blue around her lips. Preceding report by pt that "she felt funny". Has in recent weeks been complaining of pressure in her chest to family. - Exam Vitals: Temp Pulse Resp BP Pulse Ox 97.6 F 56 14 146/59 97 10/10/17 22:15 10/10/17 22:15 10/10/17 22:15 10/11/17 02:35 10/11/17 01:12 Exam: General: awake, alert, appears stated age, frail HEENT:EOM intact, pupils equal, round, moist mucus membranes, clear oropharynx Neck: supple, trachea midline Cardiovascular:regular rate and rhythm, normal S1 & S2, no rubs, murmurs or gallops. No JVD. radial pulses 2+, no lower extremity edema Lungs:Normal breath sounds, no wheezes, or crackles. Normal respiratory effort on room air Abdomen:Soft, non-tender, non-distended, + bowel sounds Extremities:No deformity, no edema or tenderness, no joint swelling or clubbing. Neurological: AAOx1, CN grossly intact, no focal deficits Skin:Normal color, no rash, no pallor, no jaundice - Assessment and Plan (1) Syncope Current Visit: Yes Status: Acute Assessment and Plan: 2 syncopal episodes witnessed by family members. Concern for cardiac etiology. Less likely seizure vs stroke based on history of reported cyanosis, no post ictal period, no focal neuro deficits or seizure like activity -normal head CT -Orthostatics were assessed and found to be normal. However patient has received IV hydration since coming up to the floor. -Review of EKG shows no acute changes. -Patient heart rate appears to run in the low 50s based on Holter monitor results in 2016 with occasional PVCs and PACs. -trops neg -infectious work up including CXR and UA unremarkable -tele -Continue with IV hydration maintenance fluids -Obtain echocardiogram and carotid duplex. -cardiology consultation -check d dimer given syncope and cyanosis, though low suspicion given no immobilization reported by family (pt very active at baseline), no prior hx clots per family (2) HTN (hypertension) Current Visit: No Status: Chronic Assessment and Plan: Blood pressure stable. Not on home medications cont to monitor will require outpt follow up (3) DVT prophylaxis Current Visit: Yes Status: Acute Assessment and Plan: Subcutaneous heparin. (4) Hypokalemia Current Visit: No Status: Acute Assessment and Plan: Mild hypokalemia 3.3. Resolved with PO repletion Replete as needed inpt, then resume home daily dosing with lasix on dc (5) (HFpEF) heart failure with preserved ejection fraction Current Visit: Yes Status: Chronic Assessment and Plan: NOT in acute exacerbation, stable only home meds are statin and lasix lasix held as receiving iVFs currently cont to monitor i/os, daily weights (6) COPD (chronic obstructive pulmonary disease) Current Visit: Yes Status: Chronic Assessment and Plan: Stable. No evidence of acute exacerbation. Continue with home inhalers/substitutes for non form. (7) Metabolic alkalosis Current Visit: Yes Status: Acute Assessment and Plan: Metabolic alkalosis with a bicarbonate of 33. Likely chronic and compensatory in the setting of COPD history. stable (8) Hyponatremia Current Visit: Yes Status: Acute Assessment and Plan: Mild hyponatremia 133. stable, gentle IVFs and monitor. - Time Spent with Patient Total time spent is greater than 50% in coordination of care (as documented) at patient's floor/unit and/or counseling patient: Greater than 35 minutes Plan of Care Discussed with: family Internal Medicine: Result - Labs CBC & Chem 7: 10/11/17 03:31 10/11/17 03:31 Labs: Short CBC 10/11/17 Range/Units 03:31 WBC 7.9 (4.3-11.1) K/mcL Hgb 11.9 (11.5-15.4) g/dL Hct 36.9 (35.3-44.9) % Plt Count 248 (140-400) K/mcL Neutrophils # 4.8 (1.6-8.9) K/mcL BMP 10/11/17 03:31 Sodium 133 L Potassium 3.6 Chloride 97 L Carbon Dioxide 33 H BUN 6 L Creatinine 0.62 Glucose 97 Calcium 9.0 Cardiac Enzymes 10/11/17 Range/Units 03:31 Troponin I < 0.03 (< 0.04) ng/mL Liver Function 10/11/17 Range/Units 03:31 Total Bilirubin 0.4 (0.3-1.0) mg/dL AST 15 (13-39) Units/L ALT 9 (7-52) Units/L Alkaline Phosphatase 95 (34-104) Units/L Albumin 3.3 L (3.5-5.7) g/dL Consult Discharge Plan - Plan Referrals: Otilio Brown, CABLE TENDER [Primary Care Provider] - (1) Syncope Qualifiers: Syncope type: unspecified Qualified Code(s): R55 - Syncope and collapse (2) HTN (hypertension) Qualifiers: Hypertension type: essential hypertension Qualified Code(s): I10 - Essential (primary) hypertension
[2017-10-11] MEDS ORDERED: Nicotine 14 MG PATCH.TD24 TD SCH (09:00)
--- NOTE | 2017-10-11 10:55 | Cardiology Consult Note ---
<Nolvia Springer Vibha - Last Filed: 10/11/17 14:02> Date of Encounter: 10/11/17 Time of Encounter: 11:07 Assessment and Plan (1) Syncope Status: Acute Likely multifactorial considering history of dementia, recent fall, poor nutritional status, possible dehydration, decreased blood pressure Episodes were very brief (<1 min), occurred while in the seated position Does not appear to be cardiac in origin EKG - unremarkable Orthostatics - negative Troponins negative Nuclear stress test 07/2016 - negative Echo 07/2016 - EF 65%, moderate diastolic dysfunction, normal RV and LV, no signs of pulmonary BP has been stable since admission, not currently on BP medication and due to recent lows, do not recommend starting a BP medication at this time Recommend outpatient follow up, will consider doing a 2 week event monitor if symptoms persist Qualifiers: Syncope type: unspecified Qualified Code(s): R55 - Syncope and collapse (2) (HFpEF) heart failure with preserved ejection fraction Status: Chronic Chronic, stable Continue current management (3) COPD (chronic obstructive pulmonary disease) Status: Chronic Chronic, stable Continue current management Qualifiers: COPD type: unspecified COPD Qualified Code(s): J44.9 - Chronic obstructive pulmonary disease, unspecified (4) Alzheimer disease Status: Chronic Chronic, stable Concern for increased agitation during hospital stay Patient is fairly independent and mobile at home Recommend keeping windows open and lights on during the day If able, patient would benefit from sitting up in chair Qualifiers: Alzheimer's disease onset: unspecified onset Dementia behavioral disturbance: without behavioral disturbance Qualified Code(s): G30.9 - Alzheimer's disease, unspecified; F02.80 - Dementia in other diseases classified elsewhere without behavioral disturbance (5) Tobacco abuse Status: Chronic Current every day smoker, 3-4 cigarettes per day Was previously smoking 2ppd Not currently interested in quitting Counseled on need for smoking cessation and increased risk for stroke and RI (6) DVT prophylaxis Status: Acute SC Heparin Discussion w patient/family: The assessment and plan as outlined above was discussed with the patient and/or family members who expressed understanding and agreement. All questions were answered. Thank you for involving us in the care of your patient. Please call with any questions. History of Present Illness Consult date: 10/11/17 Requesting physician: Klaus lAba Consult reason: Syncope Chief complaint: Weakness History of present illness: Ms. Copeland is a 87 year old female with a history of dementia, HFpEF 65% ( Echo 07/2016), CAD with stent, HTN, HLD, COPD, current daily smoker who presented to the ED after 2 recent syncopal episodes. Due to Alzheimer's dementia, the history is provided by her two daughters. Two days ago, the patient fell out of bed, which resulted in some minor injuries to her hand and leg. Yesterday morning, her daughter reports that she just, "didn't seem right" and that she seemed weak. Her daughter says that she has a brief episode lasting just a few seconds where she stopped breathing and her lips turned blue. Her blood pressure that morning was low in the 80s/60s and seemed to come up throughout the day as they continue to check it. She later had an episode where she was unresponsive in her chair for about 1 minute and was difficult to arouse. She hasn't been eating well the last several days and has been experiencing chronic diarrhea. She is fairly mobile at home and is able to get around the house one her own with and without a walker, although one of her daughters are with her almost 100% of the time. Her daughters report that she still doesn't seem to be quite at her baseline as she still seems very weak and has been agitated while being her in the hospital. She wanted to leave the room and get up out of bed during my visit this morning. Past Med Surg Social Fam HX - Past Medical History Medical history: arthritis, cancer, CHF, COPD, coronary artery disease, dementia , hyperlipidemia, hypertension Additional medical history: colon cancer Psychiatric history: anxiety - Past Surgical History Surgical History: , cholecystectomy, colectomy Additional surgical history: colon resection. - Social History Smoking Status: Current every day smoker Smokeless Tobacco Status: No Alcohol use: none Drug use: none - Family History Mother Living Status: Hx Family Cardiac Disorders: Yes (self,father,mother,brother) Hx Family Respiratory Disorders: Yes (self, brother) Hx Family Cancer: Yes (self, mother, father) Hx Family GI Disorders: No Hx Family Endocrine Disorder: No Hx Family Neuromuscular Disorders: No Hx Family Neurologic Disorders: Yes (mother,father) Hx Family HEENT Disorders: No Hx Family Autoimmune Disorders: Yes (brother) Medications and Allergies Albuterol Neb [Proventil Neb] 2.5 mg IH TID 12/22/15 [History] Albuterol Sulfate [Proair Hfa] 2 puff IH Q4H 12/22/15 [History] Atorvastatin [Lipitor] 40 mg PO HS 12/22/15 [History] Furosemide [Lasix] 20 mg PO DAILY 12/22/15 [History] LORazepam [Ativan] 0.5 mg PO 1800 MDD 1 mg 07/19/16 [History] Magnesium Oxide [Mag-Ox] 400 mg PO TID 10/31/16 [History] Budesonide/Formoterol 160/4.5 [Symbicort 160/4.5] 2 puff IH BID 07/17/17 [ History] Levocetirizine Dihydrochloride 5 mg PO DAILY 07/17/17 [History] Umeclidinium [place] [Incruse Ellipta] 1 puff IH DAILY 07/17/17 [History] Potassium Chloride [K-Tab ER] 20 meq PO DAILY 10/10/17 [History] 3 Allergy/AdvReac Type Severity Reaction Status Date / Time iodine Allergy Rash Verified 09/20/17 19:10 codeine AdvReac Swelling Verified 09/20/17 19:10 of Lip/Tongue/Throat Varenicline [From Chantix] AdvReac See Verified 06/11/17 09:21 Comments ROS unobtainable: due to mental status, other (Per her daughters report, the patient has not complained of any chest pain, shortness of breath, lighteheadedness, nausea, vomiting, or dysuria) All Systems Review: The remainder of the systems were reviewed and are negative Physical Examination Vital Signs, Last 4 Hours Temp Pulse Resp BP Pulse Ox 10/11/17 10:18 97.9 F 61 14 151/58 100 10/11/17 07:32 97.6 F 63 14 169/51 100 General: Conversant, No Apparent Distress HEENT: Atraumatic, Normocephaly Neck: No JVD Cardiac: Reg Rate and Rhythm, Normal S1 and S2, No Murmur Lungs: Normal Breath Sounds, No Wheeze, Rales, Rhonchi Neuro: Alert and responsive, No focal deficits noted Skin: Other (several bruises noted on the extremities with bandages covering the abrasions on her right leg and hand. ) Musculoskeletal: No Chest Wall Tenderness Extremities: No Cyanosis, No Edema Results 10/11/17 03:31 10/11/17 03:31 Lab Results 10/11/17 10/11/17 10/11/17 03:31 03:31 03:31 WBC 7.9 Hgb 11.9 Hct 36.9 Plt Count 248 Sodium 133 L Potassium 3.6 Chloride 97 L Carbon Dioxide 33 H BUN 6 L Creatinine 0.62 Glucose 97 Calcium 9.0 Magnesium 1.8 Total Bilirubin 0.4 AST 15 ALT 9 Alkaline Phosphatase 95 Troponin I TSH 3.025 10/11/17 03:31 WBC Hgb Hct Plt Count Sodium Potassium Chloride Carbon Dioxide BUN Creatinine Glucose Calcium Magnesium Total Bilirubin AST ALT Alkaline Phosphatase Troponin I < 0.03 TSH Consult Discharge Plan - Plan Additional Instructions: Follow up with cardiology for 2 week event monitor Referrals: Robb Menard MD [Partnered Physician] - Otilio Brown CNP [Primary Care Provider] - Nolvia Springer [Resident] - <Mian Ley - Last Filed: 10/20/17 18:40> Date of Encounter: 10/11/17 Time of Encounter: 14:00 - Attending Attestation I examined this patient and my medical decision-making was reviewed with the Resident Physician. I agree with the documented findings, disposition and treatment plan as described except to the extent set forth below. CC: Syncope HPI: Pt admitted for evaluation of falling, increasing weakness and confusion. Pt is not a reliable historian due to dementia, history obtained from old records and daughters at bedside. Pts familly reports she is more confused and weak compared to usual state. No complaints of chest pain, palpitations or shortness of breath. She apparently fell out of bed after attempting to get up by herself the day prior to admission. PMH; reviewed ROS: reviewed PE: pt seen and examined, agree with findings as documented. IMP/Plan 1. Syncope: events not clearly witnessed, has not had recurrent event since hospitalization, no significant arrythmia on tele, EF well preserved at 65% 07/24 , orthostatics and troponins negative, does not appear to have a cardiac etiology of events. Would not continue to investigate cardiac source unless symptoms change. 2. HFpEF: well compensated on current meds, continue to monitor clinically Assessment and Plan Discussion w patient/family: The assessment and plan as outlined above was discussed with the patient and/or family members who expressed understanding and agreement. All questions were answered. Thank you for involving us in the care of your patient. Please call with any questions. History of Present Illness History of present illness: Ms. Copeland is a 87 year old female All Systems Review: The remainder of the systems were reviewed and are negative Results 10/11/17 03:31 10/12/17 07:04
[2017-10-11] MEDS: Magnesium Oxide 400 MG TABLET PO SCH ×2 (14:52→14:53)
[2017-10-11] MEDS ORDERED: Albuterol 2.5 MG/3 ML NEBULIZER IH PRN (16:00)
[2017-10-11] MEDS: Budesonide/Formoterol 160/4.5 1 PUFF INH IH SCH (22:40)
[2017-10-12] MEDS: *HR* Heparin 5,000 UNIT/ML VIAL SQ SCH ×3 (06:42→16:16)
[2017-10-12] MEDS: Magnesium Oxide 400 MG TABLET PO SCH ×3 (08:39→20:09)
[2017-10-12 08:46] LABS: BUN/Creatinine Ratio 10 (6-26); Blood Urea Nitrogen 5 mg/dL (8-23); Calcium 9.4 mg/dL (8.6-10.3); Carbon Dioxide 29 mEq/L (23-29); Chloride 100 mEq/L (98-107); Glucose 79 mg/dL (70-105); Magnesium 1.8 mg/dL (1.6-2.6); Osmolality,Calculated 274 (280-300); Potassium 3.7 mEq/L (3.5-5.1); Sodium 134 mEq/L (136-145); eGFR For Non-African Americans > 60 (> 60)
[2017-10-12] MEDS ORDERED: 0.9 % Sodium Chloride 1,000 ML ONE (09:36)
[2017-10-12] MEDS: 0.9 % Sodium Chloride 1,000 ML IVC SCH (09:38)
[2017-10-12] MEDS: Tiotropium 18 MCG inhalation IH SCH (10:59)
[2017-10-12] MEDS: Budesonide/Formoterol 160/4.5 1 PUFF INH IH SCH ×2 (11:00→21:47)
--- NOTE | 2017-10-12 19:26 | Internal Med Progress Note ---
Hospitalist Progress Note - Encounter Date of Encounter: 10/12/17 Time of Encounter: 08:45 - Subjective Interval History: Awake. no family present. deneis cp,palpitations, presyncope, sob. limited ros and hpi given baseline dementia - Exam Vitals: Temp Pulse Resp BP Pulse Ox 97.6 F 65 16 143/63 100 10/12/17 14:02 10/12/17 14:02 10/12/17 10:30 10/12/17 14:02 10/12/17 14:02 Exam: General: awake, alert, appears stated age, frail Cardiovascular:regular rate and rhythm, normal S1 & S2, no rubs, murmurs or gallops. No JVD. radial pulses 2+, no lower extremity edema Lungs:Normal breath sounds, no wheezes, or crackles. Normal respiratory effort on room air Abdomen:Soft, non-tender, non-distended, + bowel sounds Neurological: AAOx1, CN grossly intact, no focal deficits Skin:Normal color, no rash, no pallor, no jaundice - Assessment and Plan (1) Syncope Current Visit: Yes Status: Acute Assessment and Plan: 2 syncopal episodes witnessed by family members. Concern for cardiac etiology. Less likely seizure vs stroke based on history of reported cyanosis, no post ictal period, no focal neuro deficits or seizure like activity -normal head CT -Orthostatics were assessed and found to be normal. However patient has received IV hydration since coming up to the floor. -Review of EKG shows no acute changes. -Patient heart rate appears to run in the low 50s based on Holter monitor results in 2016 with occasional PVCs and PACs. -trops neg -infectious work up including CXR and UA unremarkable -tele -Continue with IV hydration maintenance fluids -Obtain echocardiogram, pending read -carotid duplex. 40-59% stenosis left ICA, repeat imaging in one year as per rad rec -cardiology consultation--rec for outpt follow up for 2 week event monitor -check d dimer given syncope and cyanosis, elevated--vq scan obtaned and low probablity PE -will cont to monitor for tele events and pending echo result (2) HTN (hypertension) Current Visit: No Status: Chronic Assessment and Plan: Blood pressure stable. Not on home medications cont to monitor will require outpt follow up (3) DVT prophylaxis Current Visit: Yes Status: Acute Assessment and Plan: Subcutaneous heparin. (4) Hypokalemia Current Visit: No Status: Acute (5) (HFpEF) heart failure with preserved ejection fraction Current Visit: Yes Status: Chronic Assessment and Plan: NOT in acute exacerbation, stable only home meds are statin and lasix lasix held as receiving iVFs currently cont to monitor i/os, daily weights (6) COPD (chronic obstructive pulmonary disease) Current Visit: Yes Status: Chronic Assessment and Plan: Stable. No evidence of acute exacerbation. Continue with home inhalers/substitutes for non form. (7) Metabolic alkalosis Current Visit: Yes Status: Acute Assessment and Plan: Metabolic alkalosis with a bicarbonate of 33. Likely chronic and compensatory in the setting of COPD history. stable (8) Hyponatremia Current Visit: Yes Status: Acute Assessment and Plan: Mild hyponatremia 133. stable, gentle IVFs and monitor. - Time Spent with Patient Total time spent is greater than 50% in coordination of care (as documented) at patient's floor/unit and/or counseling patient: 25 - 35 minutes Plan of Care Discussed with: patient Internal Medicine: Result - Labs CBC & Chem 7: 10/11/17 03:31 10/12/17 07:04 Labs: BMP 10/12/17 07:04 Sodium 134 L Potassium 3.7 Chloride 100 Carbon Dioxide 29 BUN 5 L Creatinine 0.52 L Glucose 79 Calcium 9.4 - ABG Interpretation ABG results: PT/INR, D-dimer D-Dimer 1050 ng/mLFEU (0-500) H 10/11/17 13:47 - Impressions Impressions Chest X-Ray 10/11/17 00:00 IMPRESSION: No acute findings. No change. D/ / Junior Box MD / Junior Box MD Interpreting Provider: Junior Box MD Pulmonary Perfusion Imaging 10/11/17 18:39 IMPRESSION: Low probability for pulmonary embolus. D/ / Omkar León MD / Omkar León MD Interpreting Provider: Omkar León MD Echocardiogram 10/12/17 23:47 Impressions: LVEF 65%. Normal LV chamber size, wall thickness and systolic function. Indeterminate diastolic function. Normal right ventricular structure and function. Mild aortic regurgitation. Estimated RAP 5 mmHg. Insufficient TR for pulmonary pressure. No evidence of PFO with agitated saline contrast. Left Ventricular Wall Motion: Rest Echo Findings All wall segments showed normal motion. Findings: Study Quality * Technically adequate exam. ECG Findings * Normal sinus rhythm. Left Ventricle * LVEF 65%. * Normal LV chamber size, wall thickness and systolic function. * Indeterminate diastolic function. Right Ventricle * Normal right ventricular structure and function. Left Atrium * Normal left atrial size. Right Atrium * Normal right atrial size. Interatrial Septum * No evidence of PFO with agitated saline contrast. Aortic Valve * Moderately calcified aortic valve leaflets. * Mild aortic regurgitation. * No aortic stenosis. Mitral Valve * Normal mitral valve structure and function. Tricuspid Valve * Normal tricuspid valve structure and function. Pulmonic Valve * Normal pulmonic valve structure and function. Aorta * Normally sized aortic root. Pericardium * The pericardium appears normal. IVC * Normal IVC dimensions and inspiratory collapse. Estimated RAP 5 mmHg. Consult Discharge Plan - Plan Referrals: Otilio Brown, [facility] [Primary Care Provider] - (1) Syncope Qualifiers: Syncope type: unspecified Qualified Code(s): R55 - Syncope and collapse (2) HTN (hypertension) Qualifiers: Hypertension type: essential hypertension Qualified Code(s): I10 - Essential (primary) hypertension (6) COPD (chronic obstructive pulmonary disease) Qualifiers: COPD type: unspecified COPD Qualified Code(s): J44.9 - Chronic obstructive pulmonary disease, unspecified
[2017-10-12] MEDS ORDERED: Nicotine 7 MG PATCH.TD24 TD SCH (22:15)
[2017-10-13] MEDS: *HR* Heparin 5,000 UNIT/ML VIAL SQ SCH ×2 (00:43→09:31)
[2017-10-13 06:56] VITALS: BP 168/73
--- NOTE | 2017-10-13 07:21 | Discharge Summary ---
- NOTES TO OUTPATIENT PROVIDER Notes to Outpatient Provider: Cardiac work up for cause of syncope included tele monitoring and echo which were unremarkable. CUS with left ICA 40-59% stenosis and rec to repeat imaging in one yearCards recommends outpt follow up for 2 week event monitor. Of note d dimer was + but VQ scan low probability of PE. Family would like to discuss with you further pt nutrition Date of Encounter: 10/13/17 Time of Encounter: 10:30 - Discharge Diagnosis (1) Syncope Priority: Primary Status: Acute Assessment and Plan: 2 syncopal episodes witnessed by family members. Concern for cardiac etiology. Less likely seizure vs stroke based on history of reported cyanosis, no post ictal period, no focal neuro deficits or seizure like activity -normal head CT -Orthostatics were assessed and found to be normal. However patient has received IV hydration since coming up to the floor. -Review of EKG shows no acute changes. -Patient heart rate appears to run in the low 50s based on Holter monitor results in 2016 with occasional PVCs and PACs. -trops neg -infectious work up including CXR and UA unremarkable -tele without noted events -received some IV hydration -Obtained echocardiogram, unremarkable, normal EF, indeterminant amount of diastolic dysfunction -carotid duplex. 40-59% stenosis left ICA, repeat imaging in one year as per rad rec -cardiology consultation--rec for outpt follow up for 2 week event monitor -check d dimer given syncope and cyanosis, elevated--vq scan obtaned and low probablity PE -fu with cards outpt Qualifiers: Syncope type: unspecified Qualified Code(s): R55 - Syncope and collapse (2) HTN (hypertension) Priority: Secondary Status: Chronic Assessment and Plan: Blood pressure stable. Not on home medications and no recommendation to start now will require outpt follow up with PCP Qualifiers: Hypertension type: essential hypertension Qualified Code(s): I10 - Essential (primary) hypertension (3) DVT prophylaxis Priority: Secondary Status: Acute Assessment and Plan: Subcutaneous heparin while inpt (4) Hypokalemia Priority: Secondary Status: Resolved Assessment and Plan: Mild hypokalemia 3.3. Resolved with PO repletion Replete as needed inpt, then resume home daily dosing with lasix on dc (5) (HFpEF) heart failure with preserved ejection fraction Priority: Secondary Status: Chronic Assessment and Plan: NOT in acute exacerbation, stable only home meds are statin and lasix lasix held as received IVFs resume home meds on DC echo this admit with normal EF, no sig valvular disease and indeterminant grade of diastolic dysfunction (6) COPD (chronic obstructive pulmonary disease) Priority: Secondary Status: Chronic Assessment and Plan: Stable. No evidence of acute exacerbation. Continue with home inhalers/substitutes for non form. Qualifiers: COPD type: unspecified COPD Qualified Code(s): J44.9 - Chronic obstructive pulmonary disease, unspecified (7) Metabolic alkalosis Priority: Secondary Status: Acute Assessment and Plan: Metabolic alkalosis with a bicarbonate of 33. Likely chronic and compensatory in the setting of COPD history. stable (8) Hyponatremia Priority: Secondary Status: Acute Assessment and Plan: Mild hyponatremia 133. stable, gentle IVFs and stable throughout admission Hospital course: Ms. Copeland is a 87 year old female who presented with syncopal episodes witnessed at home. Cardiac work up was unremarkable here. She received vq scan for elevated d dimer that was low probability of PE. She received gentle IVFs. She had no episodes here. Family discussed needs with CM and denied need for anything at home. Pt dc to home with family in stable condition with details of admission documented above. - Time Spent with Patient Total time spent providing and/or coordinating discharge services: Less than 30 minutes - Discharge Medications Home Medications: Albuterol Neb [Proventil Neb] 2.5 mg IH TID 12/22/15 [History] Albuterol Sulfate [Proair Hfa] 2 puff IH Q4H 12/22/15 [History] Atorvastatin [Lipitor] 40 mg PO HS 12/22/15 [History] Furosemide [Lasix] 20 mg PO DAILY 12/22/15 [History] LORazepam [Ativan] 0.5 mg PO 1800 MDD 1 mg 07/19/16 [History] Magnesium Oxide [Mag-Ox] 400 mg PO TID 10/31/16 [History] Budesonide/Formoterol 160/4.5 [Symbicort 160/4.5] 2 puff IH BID 07/17/17 [ History] Levocetirizine Dihydrochloride 5 mg PO DAILY 07/17/17 [History] Umeclidinium [place] [Incruse Ellipta] 1 puff IH DAILY 07/17/17 [History] Potassium Chloride [K-Tab ER] 20 meq PO DAILY 10/10/17 [History] Allergies/Adverse Reactions: 3 Allergy/AdvReac Type Severity Reaction Status Date / Time iodine Allergy Rash Verified 09/20/17 19:10 codeine AdvReac Swelling Verified 09/20/17 19:10 of Lip/Tongue/Throat Varenicline [From Chantix] AdvReac See Verified 06/11/17 09:21 Comments Date of admission: 10/10/17 22:14 Primary care physician: Otilio Brown CNP Consults: 10/11/17 02:54 Consult to Cardiology [CONS] Routine Comment: Consulting Provider: [facility] [place] Reason for Consult: Syncope Call Completed: No Discharging clinician: Barbie Jackson - Constitutional Vitals: Temp Pulse Resp BP Pulse Ox 98.8 F 71 15 168/73 95 10/13/17 06:56 10/13/17 06:56 10/13/17 06:56 10/13/17 06:56 10/13/17 06:56 Exam: General: awake, alert, appears stated age, frail Cardiovascular:regular rate and rhythm, normal S1 & S2, no rubs, murmurs or gallops. No JVD. no lower extremity edema Lungs:Normal breath sounds, no wheezes, or crackles. Normal respiratory effort on room air Abdomen:Soft, non-tender, non-distended, + bowel sounds Neurological: AAOx1, CN grossly intact, no focal deficits Skin:Normal color, no rash, no pallor, no jaundice - Patient Status Disposition: Home, Self-Care Condition: Good Functional capacity at discharge: independent ambulation Overall status at discharge: patient is back to baseline - Discharge Instructions Follow Up With: Otilio Brown CNP [Primary Care Provider] - Nolvia Springer [Resident] - Robb Menard MD [Partnered Physician] - Additional Instructions: Follow up with cardiology for 2 week event monitor - Diet and Activity Activity: resume usual activities as tolerated Diet: advance to your usual diet
[2017-10-13] MEDS: Magnesium Oxide 400 MG TABLET PO SCH (09:31)
[2017-10-13] MEDS: Budesonide/Formoterol 160/4.5 1 PUFF INH IH SCH (10:44)
[2017-10-13] MEDS: Tiotropium 18 MCG inhalation IH SCH (10:45)
--- NOTE | 2017-10-14 12:15 | Electrocardiograph Report ---
[address] [place] [address] Test Date: 2017-10-10 Pat Name: [facility] Department: [id number] Room: 3A14 Gender: F Functional Manager: : [id number] Requested By: Maynor Montejo Order Number: [id number] Reading MD: Samantha Hargrove Measurements Intervals [place] Rate: 70 P: 263 MA: 153 QRS: 62 QRSD: 67 T: 53 QT: 428 QTc: 462 Interpretive Statements Ectopic atrial rhythm Ventricular premature complex Anteroseptal infarct, age indeterminate Electronically Signed On 10-14-2017 12:13:48 EDT by Samantha Hargrove
--- NOTE | 2017-10-24 15:06 | Emergency Department Note ---
Disposition Clinical Impression: Syncope Qualifiers: Syncope type: unspecified Qualified Code(s): R55 - Syncope and collapse Disposition: Admitted As Inpatient Condition: Good General Adult HPI - General Chief complaint: ED General Medical Stated complaint: Hypotension Time Seen by Provider: 10/10/17 20:55 Source: patient, family, EMS Mode of arrival: EMS Limitations: no limitations - History of Present Illness Pain Scale: 0 Improves with: nothing Worsens with: nothing Associated symptoms: Reports: loss of appetite, malaise, weakness Treatments Prior to Arrival: none - Related Data Home Medications Medication Instructions Recorded Confirmed Albuterol Neb [Proventil Neb] 2.5 mg IH TID 12/22/15 10/10/17 Albuterol Sulfate [Proair Hfa] 2 puff IH Q4H 12/22/15 10/10/17 Atorvastatin [Lipitor] 40 mg PO HS 12/22/15 10/10/17 Furosemide [Lasix] 20 mg PO DAILY 12/22/15 10/10/17 LORazepam [Ativan] 0.5 mg PO 1800 MDD 1 mg 07/19/16 10/10/17 Magnesium Oxide [Mag-Ox] 400 mg PO TID 10/31/16 10/10/17 Budesonide/Formoterol 160/4.5 2 puff IH BID 07/17/17 10/10/17 [Symbicort 160/4.5] Levocetirizine Dihydrochloride 5 mg PO DAILY 07/17/17 10/10/17 Umeclidinium [place] [Incruse 1 puff IH DAILY 07/17/17 10/10/17 Ellipta] Potassium Chloride [K-Tab ER] 20 meq PO DAILY 10/10/17 10/10/17 Allergies Allergy/AdvReac Type Severity Reaction Status Date / Time iodine Allergy Rash Verified 09/20/17 19:10 codeine AdvReac Swelling Verified 09/20/17 19:10 of Lip/Tongue/Throat Varenicline [From Chantix] AdvReac See Verified 06/11/17 09:21 Comments Constitutional: Reports: weakness, weight change. Denies: fever, chills, night sweats Eyes: Reports: vision change ENT ED: Denies: hearing loss Cardiovascular: Denies: chest pain, palpitations, dyspnea on exertion, edema, syncope Respiratory: Denies: cough, dyspnea, wheezes Gastrointestinal: Reports: abdominal pain, diarrhea. Denies: nausea, vomiting, melena, hematochezia Genitourinary: Denies: urgency, dysuria Musculoskeletal: Denies: back pain, neck pain Integumentary: Reports: abrasion Neurological: Reports: weakness, confusion, vertigo. Denies: headache, numbness , paresthesias, abnormal gait Endocrine: Reports: fatigue Hematological/Lymphatic: Denies: easy bleeding Past Medical History - Past Medical History Medical history: Reports: arthritis, cancer, CHF, COPD, coronary artery disease , dementia, hyperlipidemia, hypertension Surgical history: Reports: , cholecystectomy, colectomy Psychiatric history: Reports: anxiety MANAGER FAMILY history: Reports: no MANAGER FAMILY history - Social History Smoking Status: Current every day smoker Smokeless Tobacco Status: No Alcohol use: Reports: none Drug use: Reports: none Physical Exam - General Limitations: no limitations General appearance: alert, in no apparent distress Course Vital Signs Temperature 98.1 F 10/10/17 15:53 Pulse Rate 73 10/10/17 15:53 Respiratory Rate 20 10/10/17 15:53 Blood Pressure 125/53 10/10/17 15:53 O2 Sat by Pulse Oximetry 99 10/10/17 15:53 Temperature 98.8 F 10/13/17 06:56 Pulse Rate 71 10/13/17 06:56 Respiratory Rate 16 10/13/17 10:47 Blood Pressure 168/73 10/13/17 06:56 O2 Sat by Pulse Oximetry 95 10/13/17 10:47 Oxygen Delivery Oxygen Delivery Room Air Medical Decision Making - Lab Data Result diagrams: 10/11/17 03:31 10/12/17 07:04 Lab Results 10/10/17 10/10/17 10/10/17 Range/Units 18:01 18:01 19:57 Hgb 12.4 (11.5-15.4) g/dL Hct 37.9 (35.3-44.9) % Sodium 133 L (136-145) mEq/L Potassium 3.3 L (3.5-5.1) mEq/L Chloride 94 L (98-107) mEq/L Carbon Dioxide 33 H (23-29) mEq/L BUN 6 L (8-23) mg/dL Creatinine 0.64 (0.60-1.20) mg/dL Est GFR ( Amer) > 60 (> 60) Est GFR (Non-Af Amer) > 60 (> 60) BUN/Creatinine Ratio 9 (6-26) Glucose 98 (70-105) mg/dL Calculated Osmolality 274 L (280-300) Calcium 9.2 (8.6-10.3) mg/dL Troponin I < 0.03 (< 0.04) ng/mL Urine Color Yellow (Yellow) Urine Clarity Cloudy A (Clear) Urine pH 7.0 (5.0-8.0) pH Units Ur Specific [place] 1.015 (1.010-1.025) Urine Protein Negative (Neg-Trace) mg/dL Urine Glucose (UA) Normal (Normal) mg/dL Urine Ketones Negative (Negative) mg/dL Urine Blood Negative (Negative) Urine Nitrite Negative (Negative) Urine Bilirubin Negative (Negative) Urine Urobilinogen Normal (Normal) mg/dL Ur Leukocyte Esterase Moderate H (Negative) Urine Microscopic RBC 3-5 H (0-3) per hpf Urine Microscopic WBC 3-5 H (0-3) per hpf Ur Squamous Epith Cells Many H (None-Few) per lpf Urine Bacteria None Seen (None-Few) per hpf Hyaline Casts None Seen (None-Few) per lpf Ur Culture Indicated? NO. A (NO) Attestation Statement - Attestation Attestation: I examined this patient and my medical decision-making was reviewed with the Resident Physician. I agree with the documented findings, disposition and treatment plan as described except to the extent set forth below. Elderly female hemodynamically stable after a syncopal event, normal exam, admitted for monitoring.
== END 2017-10-13 14:15 | disposition home or self-care (01) | DRG 312 ==
LOC: 3ANU 15:13 → EMEROOARM 15:13 → SUATTDRO 22:14 → 3ANU 22:19
PROVIDERS: ADMIT Pediatrics; ATTEND Internal Medicine